=== PATIENT | female | born 1960 | race Caucasian/White ===

== ENCOUNTER 2017-06-04 14:05 | Inpatient (IN) | payer MEDICARE ==
[2017-06-04] MEDS ORDERED: SODIUM CHLORIDE 0.9% 1,000 ML IV ONE (15:51)
--- NOTE | 2017-06-04 16:16 | ED Physician Documentation ---
PD HPI ABD PAIN - Stated complaint Stated Complaint: ABD PX - Chief complaint Chief Complaint: Abd Pain - History obtained from History obtained from: Patient - History of Present Illness Timing - onset: How many hours ago (3) Timing - duration: Hours (3) Timing - details: Still present Quality: Cramping, Pain Location: All over / everywhere Associated symptoms: Nausea, Vomiting. No: Fever, Diarrhea, Dysuria Similar symptoms before: Has not had sx before - Additional information Additional information: The patient is a 56-year-old female with history of diabetes, inflammatory bowel syndrome, and bipolar disorder who presents with abdominal pain that started about 3 hours prior to arrival. She has had associated nausea with one episode of vomiting. She denies fever, diarrhea, or dysuria. She is postmenopausal. She states this pain is different from her inflammatory bowel syndrome pain. About 4 hours ago she ate 2 pieces of toast. Review of Systems Constitutional: denies: Fever Ears: denies: Tinnitus/ringing Nose: denies: Congestion Throat: denies: Sore throat Cardiac: denies: Chest pain / pressure Respiratory: denies: Dyspnea, Cough GI: reports: Abdominal Pain, Nausea, Vomiting. denies: Diarrhea : denies: Dysuria Skin: denies: Rash Musculoskeletal: denies: Back pain, Extremity pain, Extremity swelling Neurologic: denies: Focal weakness, Numbness, Headache PD PAST MEDICAL HISTORY - Past Medical History Cardiovascular: Hypertension Endocrine/Autoimmune: Type 2 diabetes GI: None : None HEENT: None, Chronic vision loss Psych: Bipolar disorder Musculoskeletal: None Derm: None - Past Surgical History Past Surgical History: No /PROCESS CONSULTANT: Other (Repair of enterovesicular fistula.) - Present Medications Home Medications: Ambulatory Orders Medication Instructions Recorded Confirmed Aspirin [Aspir 81] 81 mg PO DAILY 07/12/14 06/04/17 Glyburide 5 mg PO BID 07/12/14 06/04/17 Hydrochlorothiazide 25 mg PO DAILY 07/12/14 06/04/17 Losartan [Cozaar] 25 mg PO DAILY 07/12/14 06/04/17 Metformin HCl [Metformin HCl ER] 750 mg PO BID 07/12/14 06/04/17 QUEtiapine [SEROquel] 200 mg PO QPM 07/12/14 06/04/17 Simvastatin 40 mg PO DAILY 07/12/14 06/04/17 lamoTRIgine [LaMICtal] 100 mg PO BID 07/12/14 06/04/17 - Allergies Allergies/Adverse Reactions: Allergies Allergy/AdvReac Type Severity Reaction Status Date / Time Sulfa (Sulfonamide AdvReac Nausea Verified 06/04/17 16:20 Antibiotics) - Social History Does the pt smoke?: No Smoking Status: Never smoker Does the pt drink ETOH?: Yes PD ED PE NORMAL - Vitals Vital signs reviewed: Yes (Hypertensive initially.) - General General: Alert and oriented X 3, Well developed/nourished, Other (Overweight.) - HEENT HEENT: Atraumatic, Pharynx benign - Neck Neck: No adenopathy, No JVD - Cardiac Cardiac: RRR, No murmur - Respiratory Respiratory: No respiratory distress, Clear bilaterally - Abdomen Abdomen: Normal bowel sounds, Soft, Other (Mild generalized tenderness to palpation, without focal tenderness and without rebound or guarding.) - Back Back: No CVA TTP - Derm Derm: No rash - Extremities Extremities: No edema, No calf tenderness / cord - Neuro Neuro: Alert and oriented X 3, No motor deficit, No sensory deficit, Normal speech Results - Vitals Vitals: Vital Signs - 24 hr 06/04/17 06/04/17 06/04/17 15:41 18:19 19:25 Temperature 36.8 C Heart Rate 97 87 69 Respiratory 18 20 22 Rate Blood Pressure 155/95 H 137/87 H O2 Saturation 99 97 100 Oxygen O2 Source Room air - Labs Labs: Laboratory Tests 06/04/17 06/04/17 06/04/17 16:10 16:10 18:18 WBC 9.7 RBC 4.88 Hgb 14.6 Hct 42.6 MCV 87.2 MCH 29.9 MCHC 34.3 RDW 14.5 Plt Count 189 MPV 7.5 L Neut # 7.7 H Lymph # 1.3 L [place] # 0.6 Eos # 0.1 Baso # 0.1 Absolute Nucleated RBC 0.00 Nucleated RBCs 0.0 Sodium 136 Potassium 3.7 Chloride 97 L Carbon Dioxide 23 Anion Gap 16.0 H BUN 14 Creatinine 1.3 H Estimated GFR (MDRD) 42 L Glucose 180 H Calcium 10.8 H Total Bilirubin 0.9 AST 41 ALT 34 Alkaline Phosphatase 65 Total Protein 8.1 Albumin 4.7 Globulin 3.4 Albumin/Globulin Ratio 1.4 Lipase 39 Urine Color YELLOW Urine Clarity CLEAR Urine pH 7.0 Ur Specific [place] 1.015 Urine Protein NEGATIVE Urine Glucose (UA) NEGATIVE Urine Ketones 40 H Urine Occult Blood NEGATIVE Urine Nitrite NEGATIVE Urine Bilirubin NEGATIVE Urine Urobilinogen 0.2 (NORMAL) Ur Leukocyte Esterase TRACE H Urine RBC None Seen Urine WBC 0-3 Ur Squamous Epith Cells NONE SEEN Urine Bacteria None Seen Ur Microscopic Review INDICATED Urine Culture Comments INDICATED - Rads (name of study) CT abd/pelvis w/ Radiology: Prelim report reviewed, EMP read contemporaneously, See rad report ( Proximal and mid small bowel dilatation with distal decompressed small bowel. Suspicious for a partial mid to distal small bowel obstruction. Transition zone not visualized. Moderate colonic diverticulosis without diverticulitis. Diastases of the rectus sheath. No other acute process.) PD MEDICAL DECISION MAKING - ED course Complexity details: reviewed old records, reviewed results, re-evaluated patient , considered differential, d/w patient, d/w food consultant ED course: The patient's presentation is most consistent with small bowel obstruction. She does not appear to have acute surgical abdomen. Treatment in the emergency department included administration of normal saline 1 L IV, hydromorphone 1 mg IV 3 over several hours, Phenergan 12.5 mg IV, and Zofran 4 mg IV. I discussed her condition with Dr. Melgoza who is on-call for general surgery. He asked that the patient be admitted by medicine and he will consult for surgery. I discussed her condition with Dr. Stephen who evaluated her in the emergency department and admitted her for further evaluation and treatment. Departure - Departure Disposition: [facility] DC/Xfer Clinical Impression: Small bowel obstruction Type 2 diabetes mellitus Qualifiers: Proliferative retinopathy type: stable Diabetes mellitus longitudinal float operator insulin use : without longitudinal float operator use Condition: Stable Discharge Date/Time: 06/04/17 22:39
[2017-06-04 16:23] LABS: BASOPHILS # (AUTO) 0.1 10^3/uL (0.0-0.1); BASOPHILS % (AUTO) 0.5 %; EOSINOPHILS # (AUTO) 0.1 10^3/uL (0.0-0.7); EOSINOPHILS % (AUTO) 0.6 %; HCT - HEMATOCRIT 42.6 % (37.0-47.0); HGB - HEMOGLOBIN 14.6 g/dL (12.0-16.0); LYMPHOCYTES # (AUTO) 1.3 10^3/uL (1.5-3.5); LYMPHOCYTES % (AUTO) 13.2 %; MEAN CORPUSCULAR HEMOGLOBIN 29.9 pg (27.0-31.0); MEAN CORPUSCULAR HGB CONC 34.3 g/dL (32.0-36.0); MEAN CORPUSCULAR VOLUME 87.2 fL (81.0-99.0); MEAN PLATELET VOLUME 7.5 fL (7.9-10.8); MONOCYTES # (AUTO) 0.6 10^3/uL (0.0-1.0); MONOCYTES % (AUTO) 6.1 %; NEUTROPHILS # (AUTO) 7.7 10^3/uL (1.5-6.6); NEUTROPHILS % (AUTO) 79.6 %; RED BLOOD COUNT 4.88 10^6/uL (4.20-5.40); RED CELL DISTRIBUTION WIDTH 14.5 % (12.0-15.0); UNCORRECTED WHITE BLOOD COUNT 9.7 x10^3/uL; WHITE BLOOD COUNT 9.7 x10^3/uL (4.8-10.8)
[2017-06-04 16:37] LABS: ALBUMIN/GLOBULIN RATIO 1.4 (1.0-2.2); BILIRUBIN,TOTAL 0.9 mg/dL (0.2-1.0); CALCIUM 10.8 mg/dL (8.5-10.3); CREATININE 1.3 mg/dL (0.4-1.0); POTASSIUM 3.7 mmol/L (3.5-5.0); TOTAL PROTEIN 8.1 g/dL (6.7-8.2)
[2017-06-04] MEDS ORDERED: HYDROmorphone 1 MG/ML SYRINGE IVP STA ×3 (17:08→21:23)
[2017-06-04] MEDS ORDERED: PROMETHAZINE INJ 12.5 MG in SODIUM CHLORIDE 0.9% 50 ML IV STA (17:09)
[2017-06-04] MEDS ORDERED: PROMETHAZINE 25 MG/1 ML VIAL ONE ×2 (17:13→17:23)
[2017-06-04] MEDS ORDERED: HYDROmorphone 1 MG/ML SYRINGE ONE ×2 (17:13→19:48)
[2017-06-04] MEDS ORDERED: SODIUM CHLORIDE FLUSH 0.9% 10 ML SYRINGE IVP ONE ×2 (17:15→19:22)
[2017-06-04 18:29] LABS: BILIRUBIN,URINE NEGATIVE (NEGATIVE)
[2017-06-04 18:31] LABS: UA w/ MICROSCOPIC CHARGE YES
[2017-06-04 18:44] LABS: UR CULTURE IF IND INDICATED; WBC,URINE 0-3 /HPF (0-5)
[2017-06-04] MEDS ORDERED: ONDANSETRON 4 MG/2 ML VIAL IVP STA ×2 (19:30→21:23)
[2017-06-04] MEDS ORDERED: ONDANSETRON 4 MG/2 ML VIAL ONE (19:48)
[2017-06-04] MEDS ORDERED: IOPAMIDOL-300 100 ML VIAL IVP ONE (20:14)
--- NOTE | 2017-06-04 20:59 | CT Report ---
EXAM: CT ABDOMEN AND PELVIS EXAM DATE: 06/04/2017 08:06 PM. CLINICAL HISTORY: Abd. pain; h/o IBS. COMPARISONS: None. TECHNIQUE: Routine helical CT imaging was performed through the abdomen and pelvis. IV contrast: 70 c c Isovue-300 IV. Enteric contrast: No. Reconstructions: Coronal and sagittal. In accordance with CT protocol optimization, one or more of the following dose reduction techniques w ere utilized for this exam: automated exposure control, adjustment of mA and/or KV based on patient s ize, or use of iterative reconstructive technique. FINDINGS: Lung Bases: Unremarkable. Liver: Normal. No masses. Gallbladder/Bile Ducts: Unremarkable. Spleen: Normal. Pancreas: Normal. Adrenal Glands: Normal. Kidneys: Both kidneys have a lobulated contour. Kidneys enhance symmetrically without hydronephrosis. Peritoneal Cavity/Bowel: There are multiple fluid-filled and dilated small bowel loops. In the left p dary, small bowel loops measure up to 3.2 cm in diameter. The distal small bowel is decompressed. A discrete transition zone is not visualized. The appendix appears normal. There is moderate colonic di verticulosis. There are findings of previous colon resection and anastomosis in the pelvis. There is diastases of the rectus sheath at the Enrique of the umbilicus. Pelvic Organs: Urinary bladder is unremarkable. Vasculature: No aneurysms or other significant abnormality. Bones: No significant abnormality. Other: IMPRESSION: 1. Proximal and mid small bowel dilation with distal decompressed small bowel. Suspicious for a parti al mid to distal small bowel obstruction. Transition zone not visualized. 2. Moderate colonic diverticulosis without diverticulitis. 3. Diastases of the rectus sheath. 4. No other acute process. [facility] Referring Provider Line: [phone] SITE ID: [id number]
[2017-06-04] MEDS ORDERED: ACETAMINOPHEN 325 MG TABLET PO PRN (21:40)
[2017-06-04] MEDS ORDERED: TEMAZEPAM 15 MG CAPSULE PO PRN (21:40)
[2017-06-04] MEDS ORDERED: PROMETHAZINE 25 MG/1 ML VIAL IM PRN (21:40)
[2017-06-04] MEDS: SODIUM CHLORIDE 0.9% 1,000 ML IV SCH (22:52)
[2017-06-04] MEDS: oxyCODONE 5 MG TABLET PO PRN (22:52)
[2017-06-04] MEDS: SODIUM CHLORIDE FLUSH 0.9% 10 ML SYRINGE IVP SCH (22:53)
[2017-06-04] MEDS ORDERED: CALCIUM CARBONATE CHEW 500 MG TABLET PO SCH (22:59)
[2017-06-04] MEDS: QUEtiapine 100 MG TABLET PO SCH (23:19)
--- NOTE | 2017-06-04 23:27 | HISTORY & PHYSICAL EXAMINATION ---
Chief Complaint - Chief Complaint Chief Complaint: Abdominal Pain History of Present Illness - Admitted From Admitted From:: Emergency Department - History Obtained From Records Reviewed: Yes History obtained from: Patient Exam Limitations: None - History of Present Illness HPI Comment/Other: Patient is a very pleasant 56 year old female with a past medical history significant for schizoaffective disorder, alcohol abuse last drink was over 2 years ago, irritable bowel syndrome, hypertension , diabetes and obesity who presented to the Emergency Department with a chief complaint of abdominal pain. The patient states she was in her normal state of health until this morning when she came into her home after doing some yard work outside. She states that around 11 am she felt as though her abdomen became very distended all of a sudden. She states she also began having some pain in her mid abdomen which progressively worsened over the next several hours. She states by the time she arrived in the ER the pain was up to a 9/10. She states that the pain moved from the mid-abdomen up to the epigastric area of the abdomen and then into her back. She states she now also feels some acid reflux as well. She states that she began vomiting around 2 pm and states she has not been able to keep anything down and continues to feel nauseated. She states she is not passing any gas and has not had a bowel movement since yesterday. She denies any diarrhea. She denies any fevers or chills. She states the pain does improve with the pain medication she is getting in the ER but then the pain comes back once the medication wears off. She denies any chest pain, shortness of breath, orthopnea, PND, increased lower extremity swelling, headaches, blurred vision, sore throat, runny nose, muscle pain joint pain, urinary symptoms or focal neurological symptoms. She does state that she has had a surgery more than 20 years ago to repair and entero- vesicular fistula. She feels slightly anxious but states that her schizoaffective disorder is controlled as long as she takes her medications. She also states that she has lost 50 lbs over the last year. She states this was an intentional weight loss and she states she has noticed an improvement in her blood pressure and blood sugars with the weight loss. On presentation to the ER the patient was in severe abdominal pain requiring IV dilaudid. She was afebrile and her vital signs were stable. The patients lab worked revealed a mildly elevated creatinine and calcium but were otherwise within normal limits. She underwent a CT of her abdomen which revealed proximal and mid small bowel dilation with distal decompressed small bowel. Suspicious for a partial mid to distal small bowel obstruction. The emergency room physician spoke with the Surgeon fleet operations manager Dr. Melgoza who asked that the patient be admitted by the hospitalist team for medical management and he would consult on the patient. Review of Systems - Other Findings Other Findings: A comprehensive review of systems was performed and the pertinent positives and negatives are stated above in the HPI the remainder of the review of systems is negative. History - Past Medical History Cardiovascular: reports: Hypertension Endocrine/Autoimmune: reports: Type 2 diabetes GI: reports: Other (IBS) MACARONI PRESS OPERATOR: reports: None : reports: None HEENT: reports: Chronic vision loss Psych: reports: Other (Schizoaffective disorder) Musculoskeletal: reports: None Derm: reports: None MRSA Hx?: No - Past Surgical History /MACARONI PRESS OPERATOR: reports: Other (Repair of enterovesicular fistula.) - Family & Social History Family History: Mother: , Diabetes, Type 2, Hypertension, Father: , Alcoholism, Hypertension, Sister: Diabetes, Type 2, Hypertension, Brother: Diabetes, Type 2, Hypertension Living arrangement: At home Living Situation: Alone Social History Notes: The patient lives alone in a home in [place]. She was born in [place], [place] and grew up in [place] to [place] when she was 18 and has lived on [facility] for 12 years. 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 She does not have any children. She is a former smoker quit 20 years ago but previously smoked 1PPD for 20 years. She was a heavy drinker and quit 2 years ago. She states she had to go to a detox center. She denies any illicit drug use. - POLST Patient has POLST: No POLST Status: Full Code Meds/Allgy - Home Medications Home Medications: Ambulatory Orders Medication Instructions Recorded Confirmed Aspirin [Aspir 81] 81 mg PO DAILY 07/12/14 06/04/17 Glyburide 5 mg PO BID 07/12/14 06/04/17 Hydrochlorothiazide 25 mg PO DAILY 07/12/14 06/04/17 Losartan [Cozaar] 25 mg PO DAILY 07/12/14 06/04/17 Metformin HCl [Metformin HCl ER] 750 mg PO BID 07/12/14 06/04/17 QUEtiapine [SEROquel] 200 mg PO QPM 07/12/14 06/04/17 Simvastatin 40 mg PO DAILY 07/12/14 06/04/17 lamoTRIgine [LaMICtal] 100 mg PO BID 07/12/14 06/04/17 - Allergies Allergies/Adverse Reactions: Allergies Allergy/AdvReac Type Severity Reaction Status Date / Time Sulfa (Sulfonamide AdvReac Nausea Verified 06/04/17 16:20 Antibiotics) Exam - Vital Signs Reviewed Vital Signs: Yes Vital Signs: Vital Signs x48h Temp Pulse Pulse Resp BP BP Pulse Ox 06/04/17 22:44 100 18 152/99 H 98 06/04/17 22:36 37.2 C 99 20 163/85 H 98 - Physical Exam General Appearance: positive: Alert, Mild distress (Her pain was coming back on and when it does she is in distress from the pain), Anxious (Mildly) Eyes Bilateral: positive: Normal inspection, PERRL, EOMI, No lid inflammation, Conjunctivae nml, No scleral icterus ENT: positive: ENT inspection nml, Pharynx nml, Dry mucous membranes. negative : Purulent nasal drainage, Pharyngeal erythema, Oral lesions Neck: positive: Nml inspection, Thyroid nml, No JVD, Trachea midline. negative : Thyromegaly, Lymphadenopathy (R), Lymphadenopathy (L), Carotid bruit, Tracheal deviation Respiratory: positive: Chest non-tender, No respiratory distress, Breath sounds nml. negative: Wheezes, Rales, Rhonchi Cardiovascular: positive: Regular rate & rhythm, No murmur, No gallop Peripheral Pulses: positive: 2+ Abdomen: positive: Tenderness (Mostly in the mid abdomen and epigastric area, abdomen is soft), Abnml bowel sounds (Decreased), Other (Abdomen mildly distended). negative: Guarding, Rebound, Hepatomegaly Back: positive: Nml inspection. negative: CVA tenderness (R), CVA tenderness (L ) Skin: positive: Color nml, No rash, Dry. negative: Cyanosis, Pallor Extremities: positive: Non-tender, Full ROM, Nml appearance, No pedal edema Neurologic/Psychiatric: positive: Oriented x3, CN's nml (2-12), Motor nml, Sensation nml, Mood/affect nml Conclusion/Plan - Problem List (1) Small bowel obstruction Conclusion/Plan: She presented with abdominal pain, distension, not passing gas x 1 day. She has history of repair of a entero-vesicular fistula Abdomen tender and distended CT abd/pelvis shows proximal and mid small bowel dilation suspicious for a partial small bowel obstruction Likely etiology is adhesions Plan: IVFs NPO IV dialudid for pain control IV anti-emtics for nausea control If persistent vomiting then will need NG tube to intermittent suction Surgery consult Daily abd xrays (2) FELIX (acute kidney injury) Conclusion/Plan: Fermenter Operator 1.3 on presentation only slightly elevated from baseline Likely mild FELIX secondary to vomiting and poor PO intake Plan: given IVFs Monitor refractory grinder operator Avoid nephrotoxic agents (3) Type 2 diabetes mellitus Conclusion/Plan: Blood glucose elevated at 180 on presentation Patient is on glyburide at home Plan: Hold glyburide while hospitalized Check hbA1C SS insulin while hospitalized NPO SS insulin and when able to eat advance to DM diet Qualifiers: Proliferative retinopathy type: stable Diabetes mellitus intermodal truck driver insulin use: without intermodal truck driver use (4) Hypertension Conclusion/Plan: Patient states BP is much better since she lost weight ON presentation BP elevated likely secondary to pain Continue patients home BP medication Control pain Monitor BP Qualifiers: Hypertension type: essential hypertension Qualified Code(s): I10 - Essential (primary) hypertension (5) Schizoaffective disorder Conclusion/Plan: Patient is on lamictal and seroquel She was previously on lithium but had lithium toxicity so stopped Currently stable Continue home medication Qualifiers: Schizoaffective disorder type: bipolar Qualified Code(s): F25.0 - Schizoaffective disorder, bipolar type (6) Hypercalcemia Conclusion/Plan: LIkely secondary to dehydration Give IVFs Check PTH and ionized Ca Monitor Ca (7) Prophylactic use of low molecular weight heparin for venous thromboembolism Conclusion/Plan: Place on lovenox while hospitalized - Lab Results Lab results reviewed: Yes Fish Bones: 06/04/17 16:10 06/04/17 16:10 Other Lab Results: Laboratory Results WBC 9.7 x10^3/uL (4.8-10.8) 06/04/17 16:10 RBC 4.88 10^6/uL (4.20-5.40) 06/04/17 16:10 Hgb 14.6 g/dL (12.0-16.0) 06/04/17 16:10 Hct 42.6 % (37.0-47.0) 06/04/17 16:10 MCV 87.2 fL (81.0-99.0) 06/04/17 16:10 MCH 29.9 pg (27.0-31.0) 06/04/17 16:10 MCHC 34.3 g/dL (32.0-36.0) 06/04/17 16:10 RDW 14.5 % (12.0-15.0) 06/04/17 16:10 Plt Count 189 10^3/uL (130-450) 06/04/17 16:10 MPV 7.5 fL (7.9-10.8) L 06/04/17 16:10 Neut # 7.7 10^3/uL (1.5-6.6) H 06/04/17 16:10 Lymph # 1.3 10^3/uL (1.5-3.5) L 06/04/17 16:10 [place] # 0.6 10^3/uL (0.0-1.0) 06/04/17 16:10 Eos # 0.1 10^3/uL (0.0-0.7) 06/04/17 16:10 Baso # 0.1 10^3/uL (0.0-0.1) 06/04/17 16:10 Absolute Nucleated RBC 0.00 x10^3/uL 06/04/17 16:10 Nucleated RBCs 0.0 /100WBC 06/04/17 16:10 Sodium 136 mmol/L (135-145) 06/04/17 16:10 Potassium 3.7 mmol/L (3.5-5.0) 06/04/17 16:10 Chloride 97 mmol/L (101-111) L 06/04/17 16:10 Carbon Dioxide 23 mmol/L (21-32) 06/04/17 16:10 Anion Gap 16.0 (6-13) H 06/04/17 16:10 BUN 14 mg/dL (6-20) 06/04/17 16:10 Creatinine 1.3 mg/dL (0.4-1.0) H 06/04/17 16:10 Estimated GFR (MDRD) 42 (>89) L 06/04/17 16:10 Glucose 180 mg/dL (70-100) H 06/04/17 16:10 POC Whole Bld Glucose 177 mg/dL (70 - 100) H 06/04/17 23:29 Calcium 10.8 mg/dL (8.5-10.3) H 06/04/17 16:10 Total Bilirubin 0.9 mg/dL (0.2-1.0) 06/04/17 16:10 AST 41 IU/L (10-42) 06/04/17 16:10 ALT 34 IU/L (10-60) 06/04/17 16:10 Alkaline Phosphatase 65 IU/L (42-121) 06/04/17 16:10 Total Protein 8.1 g/dL (6.7-8.2) 06/04/17 16:10 Albumin 4.7 g/dL (3.2-5.5) 06/04/17 16:10 Globulin 3.4 g/dL (2.1-4.2) 06/04/17 16:10 Albumin/Globulin Ratio 1.4 (1.0-2.2) 06/04/17 16:10 Lipase 39 U/L (22-51) 06/04/17 16:10 Urine Color YELLOW 06/04/17 18:18 Urine Clarity CLEAR (CLEAR) 06/04/17 18:18 Urine pH 7.0 PH (5.0-7.5) 06/04/17 18:18 Ur Specific [place] 1.015 (1.002-1.030) 06/04/17 18:18 Urine Protein NEGATIVE mg/dL (NEGATIVE) 06/04/17 18:18 Urine Glucose (UA) NEGATIVE mg/dL (NEGATIVE) 06/04/17 18:18 Urine Ketones 40 mg/dL (NEGATIVE) H 06/04/17 18:18 Urine Occult Blood NEGATIVE (NEGATIVE) 06/04/17 18:18 Urine Nitrite NEGATIVE (NEGATIVE) 06/04/17 18:18 Urine Bilirubin NEGATIVE (NEGATIVE) 06/04/17 18:18 Urine Urobilinogen 0.2 (NORMAL) E.U./dL (NORMAL) 06/04/17 18:18 Ur Leukocyte Esterase TRACE (NEGATIVE) H 06/04/17 18:18 Urine RBC None Seen /HPF (0-5) 06/04/17 18:18 Urine WBC 0-3 /HPF (0-5) 06/04/17 18:18 Ur Squamous Epith Cells NONE SEEN (<= Few) 06/04/17 18:18 Urine Bacteria None Seen /HPF (None Seen) 06/04/17 18:18 Ur Microscopic Review INDICATED 06/04/17 18:18 Urine Culture Comments INDICATED 06/04/17 18:18 - Diagnostic Imaging Results Diagnostic Imaging Results: positive: Final report reviewed Diagnostic Imaging Results Comments: CT abdomen/Pelvis: Proximal and mid small bowel dilation with distal decompressed small bowel. Suspicious for a partial mid to distal small bowel obstruction. Tansition zone not visualized. Moderate colonic diverticulosis without diverticulitis. Dastases of the rectus sheat Issues/Core Measures - Anticipated LOS Anticipated Stay Length: 2 or more midnights - DVT/VTE - Prophylaxis VTE/DVT Prophylaxis med ordered at admit?: Yes
[2017-06-05] MEDS: INSULIN REGULAR HUMAN 100 UNIT/1 ML 10 ML MDV SUBQ SCH ×5 (00:41→23:49)
[2017-06-05] MEDS: oxyCODONE 5 MG TABLET PO PRN ×2 (04:46→18:05)
[2017-06-05] MEDS: SODIUM CHLORIDE 0.9% 1,000 ML IV SCH ×3 (04:53→20:03)
[2017-06-05] MEDS: SODIUM CHLORIDE FLUSH 0.9% 10 ML SYRINGE IVP SCH ×3 (05:33→22:39)
[2017-06-05] MEDS: HYDROmorphone 1 MG/ML SYRINGE IVP PRN ×4 (05:42→17:49)
[2017-06-05 06:41] LABS: BASOPHILS % (AUTO) 0.3 %; EOSINOPHILS % (AUTO) 0.5 %; HCT - HEMATOCRIT 44.4 % (37.0-47.0); HGB - HEMOGLOBIN 14.7 g/dL (12.0-16.0); LYMPHOCYTES # (AUTO) 1.5 10^3/uL (1.5-3.5); LYMPHOCYTES % (AUTO) 16.9 %; MEAN CORPUSCULAR HEMOGLOBIN 29.5 pg (27.0-31.0); MEAN CORPUSCULAR VOLUME 89.3 fL (81.0-99.0); MEAN PLATELET VOLUME 7.8 fL (7.9-10.8); MONOCYTES # (AUTO) 0.8 10^3/uL (0.0-1.0); MONOCYTES % (AUTO) 8.6 %; NEUTROPHILS # (AUTO) 6.5 10^3/uL (1.5-6.6); NEUTROPHILS % (AUTO) 73.7 %; RED BLOOD COUNT 4.97 10^6/uL (4.20-5.40); RED CELL DISTRIBUTION WIDTH 14.6 % (12.0-15.0); UNCORRECTED WHITE BLOOD COUNT 8.8 x10^3/uL; WHITE BLOOD COUNT 8.8 x10^3/uL (4.8-10.8)
[2017-06-05 06:48] LABS: PT - PROTHROMBIN TIME 11.3 secs (9.9-12.6)
[2017-06-05 06:54] LABS: ALBUMIN/GLOBULIN RATIO 1.3 (1.0-2.2); BILIRUBIN,TOTAL 0.9 mg/dL (0.2-1.0); CALCIUM 9.9 mg/dL (8.5-10.3); CREATININE 1.3 mg/dL (0.4-1.0); MAGNESIUM 1.9 mg/dL (1.7-2.8); POTASSIUM 4.2 mmol/L (3.5-5.0); TOTAL PROTEIN 7.5 g/dL (6.7-8.2)
[2017-06-05 07:20] LABS: HEMOGLOBIN A1C 0.63 g/dL
[2017-06-05 07:30] LABS: THYROID STIMULATING HORMONE 4.07 uIU/mL (0.34-5.60)
[2017-06-05] MEDS: POLYETHYLENE GLYCOL 3350 17 GM PACKET PO SCH (08:56)
[2017-06-05] MEDS ORDERED: LITHIUM 150 MG CAPSULE PO SCH (09:00)
[2017-06-05] MEDS ORDERED: QUEtiapine 100 MG TABLET PO SCH (09:00)
--- NOTE | 2017-06-05 09:22 | XRAY Report ---
ACUTE ABDOMEN SERIES: 06/05/2017 CLINICAL INDICATION: Bowel obstruction. FINDINGS: Supine, upright views of the abdomen and a frontal view of the chest were obtained. The cardiac silhouette is within normal limits. The lungs are clear. No effusion or pneumothorax is s een. The visualized bowel gas pattern is normal. No free intraperitoneal gas is appreciated. Residual cont rast is seen in the urinary bladder from a CT of the previous day. IMPRESSION: NORMAL BOWEL GAS PATTERN. NO FREE AIR. JOB #: [id number] EXT JOB #:[id number]
[2017-06-05] MEDS: CALCIUM CARBONATE CHEW 500 MG TABLET PO SCH ×2 (11:04→22:38)
[2017-06-05] MEDS: FAMOTIDINE 20 MG/50 ML 50 ML IV SCH (11:04)
[2017-06-05] MEDS: ATORVASTATIN 10 MG TABLET PO SCH (11:04)
[2017-06-05] MEDS: ASPIRIN EC 81 MG TABLET PO SCH (11:04)
[2017-06-05] MEDS: LOSARTAN 50 MG TABLET PO SCH (11:04)
[2017-06-05] MEDS: lamoTRIgine 100 MG TABLET PO SCH ×2 (11:05→18:07)
[2017-06-05] MEDS: hydroCHLOROthiazide 25 MG TABLET PO SCH (11:05)
[2017-06-05] MEDS: ENOXAPARIN 40 MG/0.4 ML SYRINGE SUBQ SCH (11:05)
[2017-06-05] MEDS: SODIUM CHLORIDE FLUSH 0.9% 10 ML SYRINGE IVP PRN ×2 (13:35→17:50)
--- NOTE | 2017-06-05 14:57 | PROVIDER PROGRESS NOTE ---
Subjective - Subjective Pt reports feeling: Improved, No change Subjective: pt state she had three time vomiting before she came in but did not nausea and vomiting after treated at hospital. Denies abdominal pain, chest pain, headache , shortness of air, fever, chill. No bowel movement since before yesterday. Objective - Vital Signs/Intake & Output Vital Signs: Vital Signs x48h Temp Pulse Resp BP Pulse Ox 06/05/17 08:04 37 C 82 20 124/61 100 Intake & Output: Intake & Output 06/02/17 06/03/17 06/04/17 06/05/17 23:59 23:59 23:59 23:59 Intake Total 1855 Output Total 1 Balance 1854 - Objective General Appearance: positive: No acute distress, Alert. negative: Anxious Eyes Bilateral: positive: Normal inspection, PERRL. negative: No lid inflammation, Conjunctivae nml ENT: positive: ENT inspection nml, Pharynx nml, No signs of dehydration. negative: Purulent nasal drainage, Pharyngeal erythema, Oral lesions Neck: positive: Nml inspection, Thyroid nml, Trachea midline. negative: Lymphadenopathy (R), Lymphadenopathy (L), Stiff neck, Swelling/bruising Respiratory: positive: Chest non-tender, No respiratory distress, Breath sounds nml. negative: Wheezes, Rales, Rhonchi Cardiovascular: positive: Regular rate & rhythm, No murmur, No gallop. negative : Tachycardia, Bradycardia, Systolic murmur, Diastolic murmur Peripheral Pulses: 2+ Radial (R), 2+ Radial (L), 2+ Dorsalis pedis (R), 2+ Dorsalis pedis (L) Abdomen: positive: Non-tender, No distention. negative: Tenderness, Guarding, Rebound, Other (reduced bowel sounds in all quadrants) Back: positive: Nml inspection. negative: CVA tenderness (R), CVA tenderness (L ) Skin: positive: Color nml, No rash, Warm, Dry. negative: Diaphoresis, Pallor Extremities: positive: Non-tender, Full ROM, Nml appearance, No pedal edema. negative: Pedal edema, Calf tenderness, Joint swelling Neurologic/Psychiatric: positive: Oriented x3, CN's nml (2-12), Motor nml, Sensation nml, Mood/affect nml. negative: Disoriented to person, Disoriented to place, Disoriented to time, Weakness, Sensory loss, Facial droop, Slurred/ abnml speech, Depressed mood/affect - Lab Results Fish Bones: 06/05/17 06:25 06/05/17 06:25 Other Labs: Lab Results x24hrs 06/05/17 06/05/17 06/05/17 Range/Units 11:22 06:25 06:25 WBC (4.8-10.8) x10^3/uL RBC (4.20-5.40) 10^6/uL Hgb (12.0-16.0) g/dL Hct (37.0-47.0) % MCV (81.0-99.0) fL MCH (27.0-31.0) pg MCHC (32.0-36.0) g/dL RDW (12.0-15.0) % Plt Count (130-450) 10^3/uL MPV (7.9-10.8) fL Neut # (1.5-6.6) 10^3/uL Lymph # (1.5-3.5) 10^3/uL [place] # (0.0-1.0) 10^3/uL Eos # (0.0-0.7) 10^3/uL Baso # (0.0-0.1) 10^3/uL Absolute Nucleated RBC x10^3/uL Nucleated RBCs /100WBC PT (9.9-12.6) secs INR (0.8-1.2) Sodium (135-145) mmol/L Potassium (3.5-5.0) mmol/L Chloride (101-111) mmol/L Carbon Dioxide (21-32) mmol/L Anion Gap (6-13) BUN (6-20) mg/dL Creatinine (0.4-1.0) mg/dL Estimated GFR (MDRD) (>89) Glucose (70-100) mg/dL POC Whole Bld Glucose 100 (70 - 100) mg/dL Glycated Hemoglobin 5.8 (4.6-6.2) % Estim Average Glucose 120 H (70-100) Lactic Acid (0.5-2.2) mmol/L Calcium (8.5-10.3) mg/dL Magnesium (1.7-2.8) mg/dL Total Bilirubin (0.2-1.0) mg/dL AST (10-42) IU/L ALT (10-60) IU/L Alkaline Phosphatase (42-121) IU/L Total Protein (6.7-8.2) g/dL Albumin (3.2-5.5) g/dL Globulin (2.1-4.2) g/dL Albumin/Globulin Ratio (1.0-2.2) TSH 4.07 (0.34-5.60) uIU/mL PTH Intact 27 (12-88) pg/mL 06/05/17 06/05/17 06/05/17 Range/Units 06:25 06:25 06:25 WBC (4.8-10.8) x10^3/uL RBC (4.20-5.40) 10^6/uL Hgb (12.0-16.0) g/dL Hct (37.0-47.0) % MCV (81.0-99.0) fL MCH (27.0-31.0) pg MCHC (32.0-36.0) g/dL RDW (12.0-15.0) % Plt Count (130-450) 10^3/uL MPV (7.9-10.8) fL Neut # (1.5-6.6) 10^3/uL Lymph # (1.5-3.5) 10^3/uL [place] # (0.0-1.0) 10^3/uL Eos # (0.0-0.7) 10^3/uL Baso # (0.0-0.1) 10^3/uL Absolute Nucleated RBC x10^3/uL Nucleated RBCs /100WBC PT 11.3 (9.9-12.6) secs INR 1.0 (0.8-1.2) Sodium 138 (135-145) mmol/L Potassium 4.2 (3.5-5.0) mmol/L Chloride 101 (101-111) mmol/L Carbon Dioxide 23 (21-32) mmol/L Anion Gap 14.0 H (6-13) BUN 16 (6-20) mg/dL Creatinine 1.3 H (0.4-1.0) mg/dL Estimated GFR (MDRD) 42 L (>89) Glucose 152 H (70-100) mg/dL POC Whole Bld Glucose (70 - 100) mg/dL Glycated Hemoglobin (4.6-6.2) % Estim Average Glucose (70-100) Lactic Acid 1.1 (0.5-2.2) mmol/L Calcium 9.9 (8.5-10.3) mg/dL Magnesium 1.9 (1.7-2.8) mg/dL Total Bilirubin 0.9 (0.2-1.0) mg/dL AST 37 (10-42) IU/L ALT 32 (10-60) IU/L Alkaline Phosphatase 59 (42-121) IU/L Total Protein 7.5 (6.7-8.2) g/dL Albumin 4.3 (3.2-5.5) g/dL Globulin 3.2 (2.1-4.2) g/dL Albumin/Globulin Ratio 1.3 (1.0-2.2) TSH (0.34-5.60) uIU/mL PTH Intact (12-88) pg/mL 06/05/17 06/05/17 06/04/17 Range/Units 06:25 05:25 23:29 WBC 8.8 (4.8-10.8) x10^3/uL RBC 4.97 (4.20-5.40) 10^6/uL Hgb 14.7 (12.0-16.0) g/dL Hct 44.4 (37.0-47.0) % MCV 89.3 (81.0-99.0) fL MCH 29.5 (27.0-31.0) pg MCHC 33.0 (32.0-36.0) g/dL RDW 14.6 (12.0-15.0) % Plt Count 201 (130-450) 10^3/uL MPV 7.8 L (7.9-10.8) fL Neut # 6.5 (1.5-6.6) 10^3/uL Lymph # 1.5 (1.5-3.5) 10^3/uL [place] # 0.8 (0.0-1.0) 10^3/uL Eos # 0.0 (0.0-0.7) 10^3/uL Baso # 0.0 (0.0-0.1) 10^3/uL Absolute Nucleated RBC 0.00 x10^3/uL Nucleated RBCs 0.0 /100WBC PT (9.9-12.6) secs INR (0.8-1.2) Sodium (135-145) mmol/L Potassium (3.5-5.0) mmol/L Chloride (101-111) mmol/L Carbon Dioxide (21-32) mmol/L Anion Gap (6-13) BUN (6-20) mg/dL Creatinine (0.4-1.0) mg/dL Estimated GFR (MDRD) (>89) Glucose (70-100) mg/dL POC Whole Bld Glucose 109 H 177 H (70 - 100) mg/dL Glycated Hemoglobin (4.6-6.2) % Estim Average Glucose (70-100) Lactic Acid (0.5-2.2) mmol/L Calcium (8.5-10.3) mg/dL Magnesium (1.7-2.8) mg/dL Total Bilirubin (0.2-1.0) mg/dL AST (10-42) IU/L ALT (10-60) IU/L Alkaline Phosphatase (42-121) IU/L Total Protein (6.7-8.2) g/dL Albumin (3.2-5.5) g/dL Globulin (2.1-4.2) g/dL Albumin/Globulin Ratio (1.0-2.2) TSH (0.34-5.60) uIU/mL PTH Intact (12-88) pg/mL Assessment/Plan - Problem List (1) Small bowel obstruction Impression: surgeon already saw pt, will follow up. NPO except meds IVF pt does not vomit, no NG tube at this moment, will follow up surgeon's recommendation (2) Type 2 diabetes mellitus Impression: pt is NPO now, ACHS, hypoglycemia protocol, slide scale as needed Qualifiers: Proliferative retinopathy type: stable Diabetes mellitus termite treater helper insulin use: without skilled nursing use (3) FELIX (acute kidney injury) Impression: acute on chronic renal insufficiency, IVF, hydration check CMP void nephrotoxic agents (4) Hypertension Impression: it appears stable now, reconciliation of home meds, closely monitor Qualifiers: Hypertension type: essential hypertension Qualified Code(s): I10 - Essential (primary) hypertension (5) Hypercalcemia Impression: resolved after hydration, will monitor closely (6) Schizoaffective disorder Impression: mood and affect stable now, reconciliation of home meds, monitor Qualifiers: Schizoaffective disorder type: bipolar Qualified Code(s): F25.0 - Schizoaffective disorder, bipolar type
[2017-06-05] MEDS: ONDANSETRON 4 MG/2 ML VIAL IVP PRN (18:03)
[2017-06-05] MEDS: QUEtiapine 100 MG TABLET PO SCH (18:07)
[2017-06-06] MEDS: SODIUM CHLORIDE 0.9% 1,000 ML IV SCH ×4 (02:19→19:42)
[2017-06-06] MEDS: oxyCODONE 5 MG TABLET PO PRN ×2 (03:03→09:30)
[2017-06-06] MEDS: HYDROmorphone 1 MG/ML SYRINGE IVP PRN ×5 (03:26→20:52)
[2017-06-06] MEDS: SODIUM CHLORIDE FLUSH 0.9% 10 ML SYRINGE IVP SCH ×3 (04:54→22:28)
[2017-06-06] MEDS: INSULIN REGULAR HUMAN 100 UNIT/1 ML 10 ML MDV SUBQ SCH ×3 (06:08→18:52)
[2017-06-06 06:24] LABS: BASOPHILS % (AUTO) 0.2 %; EOSINOPHILS # (AUTO) 0.2 10^3/uL (0.0-0.7); EOSINOPHILS % (AUTO) 1.8 %; HCT - HEMATOCRIT 40.6 % (37.0-47.0); HGB - HEMOGLOBIN 13.4 g/dL (12.0-16.0); LYMPHOCYTES # (AUTO) 1.1 10^3/uL (1.5-3.5); LYMPHOCYTES % (AUTO) 13.2 %; MEAN CORPUSCULAR HEMOGLOBIN 30.1 pg (27.0-31.0); MEAN CORPUSCULAR VOLUME 91.2 fL (81.0-99.0); MEAN PLATELET VOLUME 7.8 fL (7.9-10.8); MONOCYTES # (AUTO) 0.9 10^3/uL (0.0-1.0); NEUTROPHILS # (AUTO) 6.3 10^3/uL (1.5-6.6); NEUTROPHILS % (AUTO) 73.8 %; NUCLEATED RED BLOOD CELLS AUTO 0.1 /100WBC; RED BLOOD COUNT 4.45 10^6/uL (4.20-5.40); RED CELL DISTRIBUTION WIDTH 14.7 % (12.0-15.0); UNCORRECTED WHITE BLOOD COUNT 8.5 x10^3/uL; WHITE BLOOD COUNT 8.5 x10^3/uL (4.8-10.8)
[2017-06-06 06:36] LABS: ALBUMIN/GLOBULIN RATIO 1.3 (1.0-2.2); BILIRUBIN,TOTAL 0.8 mg/dL (0.2-1.0); CALCIUM 8.7 mg/dL (8.5-10.3); CREATININE 1.1 mg/dL (0.4-1.0); MAGNESIUM 1.5 mg/dL (1.7-2.8); POTASSIUM 4.2 mmol/L (3.5-5.0); TOTAL PROTEIN 5.8 g/dL (6.7-8.2)
[2017-06-06] MEDS ORDERED: MAGNESIUM SULFATE 1 GM in SODIUM CHLORIDE 0.9% 50 ML IV ONE (08:39)
[2017-06-06] MEDS: POLYETHYLENE GLYCOL 3350 17 GM PACKET PO SCH (08:44)
--- NOTE | 2017-06-06 08:49 | PROVIDER PROGRESS NOTE ---
Subjective - General Admit Date: 06/04/17 - Review of Systems Gastrointestinal: positive: Abdominal pain (improved but still present) Objective - Patient Data Vital Signs: Vital Signs x48h Temp Pulse Resp BP Pulse Ox 06/06/17 07:59 37.3 C 86 16 125/78 97 Weight: Weight 06/04/17 06/05/17 06/06/17 23:59 23:59 23:59 Weight (kg) 95 kg Intake & Output: Intake and Output Totals x24h 06/04/17 06/05/17 06/06/17 23:59 23:59 23:59 Intake Total 2905 931 Output Total 1 Balance 2904 931 - Lab Results Lab Results: 06/06/17 05:18 06/06/17 05:18 Other Lab Results: Lab Results x24hrs 06/06/17 06/06/17 06/06/17 Range/Units 05:46 05:18 05:18 WBC 8.5 (4.8-10.8) x10^3/uL RBC 4.45 (4.20-5.40) 10^6/uL Hgb 13.4 (12.0-16.0) g/dL Hct 40.6 (37.0-47.0) % MCV 91.2 (81.0-99.0) fL MCH 30.1 (27.0-31.0) pg MCHC 33.0 (32.0-36.0) g/dL RDW 14.7 (12.0-15.0) % Plt Count 139 (130-450) 10^3/uL MPV 7.8 L (7.9-10.8) fL Neut # 6.3 (1.5-6.6) 10^3/uL Lymph # 1.1 L (1.5-3.5) 10^3/uL [place] # 0.9 (0.0-1.0) 10^3/uL Eos # 0.2 (0.0-0.7) 10^3/uL Baso # 0.0 (0.0-0.1) 10^3/uL Absolute Nucleated RBC 0.01 x10^3/uL Nucleated RBCs 0.1 /100WBC Sodium 141 (135-145) mmol/L Potassium 4.2 (3.5-5.0) mmol/L Chloride 108 (101-111) mmol/L Carbon Dioxide 25 (21-32) mmol/L Anion Gap 8.0 (6-13) BUN 13 (6-20) mg/dL Creatinine 1.1 H (0.4-1.0) mg/dL Estimated GFR (MDRD) 51 L (>89) Glucose 124 H (70-100) mg/dL POC Whole Bld Glucose 109 H (70 - 100) mg/dL Calcium 8.7 (8.5-10.3) mg/dL Magnesium 1.5 L (1.7-2.8) mg/dL Total Bilirubin 0.8 (0.2-1.0) mg/dL AST 22 (10-42) IU/L ALT 21 (10-60) IU/L Alkaline Phosphatase 50 (42-121) IU/L Total Protein 5.8 L (6.7-8.2) g/dL Albumin 3.3 (3.2-5.5) g/dL Globulin 2.5 (2.1-4.2) g/dL Albumin/Globulin Ratio 1.3 (1.0-2.2) 06/05/17 06/05/17 06/05/17 Range/Units 23:45 17:30 11:22 WBC (4.8-10.8) x10^3/uL RBC (4.20-5.40) 10^6/uL Hgb (12.0-16.0) g/dL Hct (37.0-47.0) % MCV (81.0-99.0) fL MCH (27.0-31.0) pg MCHC (32.0-36.0) g/dL RDW (12.0-15.0) % Plt Count (130-450) 10^3/uL MPV (7.9-10.8) fL Neut # (1.5-6.6) 10^3/uL Lymph # (1.5-3.5) 10^3/uL [place] # (0.0-1.0) 10^3/uL Eos # (0.0-0.7) 10^3/uL Baso # (0.0-0.1) 10^3/uL Absolute Nucleated RBC x10^3/uL Nucleated RBCs /100WBC Sodium (135-145) mmol/L Potassium (3.5-5.0) mmol/L Chloride (101-111) mmol/L Carbon Dioxide (21-32) mmol/L Anion Gap (6-13) BUN (6-20) mg/dL Creatinine (0.4-1.0) mg/dL Estimated GFR (MDRD) (>89) Glucose (70-100) mg/dL POC Whole Bld Glucose 115 H 132 H 100 (70 - 100) mg/dL Calcium (8.5-10.3) mg/dL Magnesium (1.7-2.8) mg/dL Total Bilirubin (0.2-1.0) mg/dL AST (10-42) IU/L ALT (10-60) IU/L Alkaline Phosphatase (42-121) IU/L Total Protein (6.7-8.2) g/dL Albumin (3.2-5.5) g/dL Globulin (2.1-4.2) g/dL Albumin/Globulin Ratio (1.0-2.2) - Current Medications Current Medications: Current Medications Generic Name Dose Route Start Last Admin Trade Name Freq PRN Reason Stop Dose Admin Aspirin 81 mg 06/05/17 09:00 06/05/17 11:04 Ecotrin PO 81 mg DAILY EZIO Administration Atorvastatin Calcium 20 mg 06/05/17 09:00 06/05/17 11:04 Lipitor PO 20 mg DAILY EZIO Administration Calcium Carbonate/Glycine 500 mg 06/05/17 09:00 06/05/17 22:38 Tums PO Not Given BID EZIO Enoxaparin Sodium 40 mg 06/05/17 09:00 06/05/17 11:05 Lovenox SUBQ 40 mg DAILY EZIO Administration Hydrochlorothiazide 25 mg 06/05/17 09:00 06/05/17 11:05 Hydrodiuril PO 25 mg DAILY EZIO Administration Hydromorphone HCl 1 mg 06/04/17 21:40 06/06/17 03:26 Dilaudid Inj IVP 1 mg Q2HR PRN Administration Pain 8 to 10 Sodium Chloride 1,000 mls @ 150 mls/hr 06/04/17 22:00 06/06/17 08:36 Normal Saline 0.9% IV 150 mls/hr .Q6H40M EZIO Administration Famotidine 50 mls @ 100 mls/hr 06/05/17 09:00 06/05/17 11:04 Pepcid 20 Mg/50 Ml IV 100 mls/hr DAILY EZIO Administration Insulin Human Regular 1 - 5 unit 06/05/17 00:00 06/06/17 06:08 Novolin R SUBQ Not Given Q6HR [facility] Protocol Lamotrigine 100 mg 06/05/17 09:00 06/05/17 18:07 Lamictal PO 100 mg BID EZIO Administration Losartan Potassium 25 mg 06/05/17 09:00 06/05/17 11:04 Cozaar PO 25 mg DAILY EIZO Administration Ondansetron HCl 4 mg 06/04/17 21:40 06/05/17 18:03 Zofran Inj IVP 4 mg Q6HR PRN Administration Nausea / Vomiting Oxycodone HCl 5 mg 06/04/17 21:40 06/05/17 04:46 Roxicodone PO 5 mg Q4HR PRN Administration Pain 5 to 7 Oxycodone HCl 10 mg 06/04/17 21:40 06/06/17 03:03 Roxicodone PO 10 mg Q4HR PRN Administration Pain 8 to 10 Polyethylene Glycol 17 gm 06/05/17 09:00 06/06/17 08:44 Miralax PO Not Given DAILY EZIO Quetiapine Fumarate 200 mg 06/04/17 23:00 06/05/17 18:07 Seroquel PO 200 mg QPM EZIO Administration Sodium Chloride 10 ml 06/04/17 21:40 06/05/17 17:50 Normal Saline Flush 0.9% IVP 10 ml PRN PRN Administration NEEDED PER PROVIDER ORDERS Sodium Chloride 10 ml 06/04/17 22:00 06/06/17 04:54 Normal Saline Flush 0.9% IVP Not Given Q8HR [facility] - Physical Exam Abdomen: positive: Non-tender Impression/Plan - Problem List Problem List: partial small bowel obstruction. She had a small bowel movement today but still has some abdominal pain present. No c/o n/v. will check small bowel series today.
[2017-06-06] MEDS: FAMOTIDINE 20 MG/50 ML 50 ML IV SCH (09:30)
[2017-06-06] MEDS: ENOXAPARIN 40 MG/0.4 ML SYRINGE SUBQ SCH (10:00)
[2017-06-06] MEDS: ATORVASTATIN 10 MG TABLET PO SCH (10:00)
[2017-06-06] MEDS: LOSARTAN 50 MG TABLET PO SCH (10:01)
[2017-06-06] MEDS: CALCIUM CARBONATE CHEW 500 MG TABLET PO SCH ×2 (10:01→20:52)
[2017-06-06] MEDS: lamoTRIgine 100 MG TABLET PO SCH ×2 (10:01→20:52)
[2017-06-06] MEDS: hydroCHLOROthiazide 25 MG TABLET PO SCH (10:01)
[2017-06-06] MEDS: ASPIRIN EC 81 MG TABLET PO SCH (10:04)
[2017-06-06] MEDS: ONDANSETRON 4 MG/2 ML VIAL IVP PRN ×2 (13:29→20:52)
[2017-06-06] MEDS: PROCHLORPERAZINE 10 MG/2 ML VIAL IVP PRN (14:39)
[2017-06-06] MEDS: SODIUM CHLORIDE FLUSH 0.9% 10 ML SYRINGE IVP PRN ×2 (14:40→15:23)
--- NOTE | 2017-06-06 15:31 | PROVIDER PROGRESS NOTE ---
Subjective - Subjective Pt reports feeling: No change Subjective: pt report small bowel movement but still abdominal pain. Objective - Vital Signs/Intake & Output Vital Signs: Vital Signs x48h Temp Pulse Resp BP Pulse Ox 06/06/17 11:48 37.1 C 93 18 123/97 H 95 06/06/17 07:59 37.3 C 86 16 125/78 97 Intake & Output: Intake & Output 06/03/17 06/04/17 06/05/17 06/06/17 23:59 23:59 23:59 23:59 Intake Total 2905 2244 Output Total 1 Balance 2904 2244 - Objective General Appearance: positive: Alert, Mild distress. negative: Lethargic Eyes Bilateral: positive: Normal inspection, PERRL ENT: positive: ENT inspection nml, Pharynx nml. negative: Purulent nasal drainage, Pharyngeal erythema, Oral lesions Neck: positive: Nml inspection, Thyroid nml, Trachea midline. negative: Lymphadenopathy (R), Lymphadenopathy (L), Stiff neck, Swelling/bruising, Tracheal deviation Respiratory: positive: Chest non-tender, No respiratory distress, Breath sounds nml. negative: Wheezes, Rales, Rhonchi Cardiovascular: positive: Regular rate & rhythm, No murmur, No gallop. negative : Systolic murmur, Diastolic murmur Peripheral Pulses: 2+ Radial (R), 2+ Radial (L), 2+ Dorsalis pedis (R), 2+ Dorsalis pedis (L) Abdomen: positive: Non-tender, No distention, Other (reduced bowel sound). negative: Tenderness, Guarding, Rebound Back: positive: Nml inspection. negative: CVA tenderness (R), CVA tenderness (L ) Skin: positive: Color nml, Warm, Dry. negative: Diaphoresis, Skin rash Extremities: positive: Non-tender, Full ROM, Nml appearance, No pedal edema. negative: Pedal edema, Calf tenderness, Joint swelling, Preston's sign/cords Neurologic/Psychiatric: positive: Oriented x3, CN's nml (2-12), Motor nml, Sensation nml, Mood/affect nml. negative: Weakness, Facial droop, Slurred/ abnml speech, Depressed mood/affect - Lab Results Fish Bones: 06/06/17 05:18 08/03/17 05:18 Other Labs: Lab Results x24hrs 06/06/17 06/06/17 06/06/17 Range/Units 11:46 05:46 05:18 WBC (4.8-10.8) x10^3/uL RBC (4.20-5.40) 10^6/uL Hgb (12.0-16.0) g/dL Hct (37.0-47.0) % MCV (81.0-99.0) fL MCH (27.0-31.0) pg MCHC (32.0-36.0) g/dL RDW (12.0-15.0) % Plt Count (130-450) 10^3/uL MPV (7.9-10.8) fL Neut # (1.5-6.6) 10^3/uL Lymph # (1.5-3.5) 10^3/uL [place] # (0.0-1.0) 10^3/uL Eos # (0.0-0.7) 10^3/uL Baso # (0.0-0.1) 10^3/uL Absolute Nucleated RBC x10^3/uL Nucleated RBCs /100WBC Sodium 141 (135-145) mmol/L Potassium 4.2 (3.5-5.0) mmol/L Chloride 108 (101-111) mmol/L Carbon Dioxide 25 (21-32) mmol/L Anion Gap 8.0 (6-13) BUN 13 (6-20) mg/dL Creatinine 1.1 H (0.4-1.0) mg/dL Estimated GFR (MDRD) 51 L (>89) Glucose 124 H (70-100) mg/dL POC Whole Bld Glucose 166 H 109 H (70 - 100) mg/dL Calcium 8.7 (8.5-10.3) mg/dL Magnesium 1.5 L (1.7-2.8) mg/dL Total Bilirubin 0.8 (0.2-1.0) mg/dL AST 22 (10-42) IU/L ALT 21 (10-60) IU/L Alkaline Phosphatase 50 (42-121) IU/L Total Protein 5.8 L (6.7-8.2) g/dL Albumin 3.3 (3.2-5.5) g/dL Globulin 2.5 (2.1-4.2) g/dL Albumin/Globulin Ratio 1.3 (1.0-2.2) 06/06/17 06/05/17 06/05/17 Range/Units 05:18 23:45 17:30 WBC 8.5 (4.8-10.8) x10^3/uL RBC 4.45 (4.20-5.40) 10^6/uL Hgb 13.4 (12.0-16.0) g/dL Hct 40.6 (37.0-47.0) % MCV 91.2 (81.0-99.0) fL MCH 30.1 (27.0-31.0) pg MCHC 33.0 (32.0-36.0) g/dL RDW 14.7 (12.0-15.0) % Plt Count 139 (130-450) 10^3/uL MPV 7.8 L (7.9-10.8) fL Neut # 6.3 (1.5-6.6) 10^3/uL Lymph # 1.1 L (1.5-3.5) 10^3/uL [place] # 0.9 (0.0-1.0) 10^3/uL Eos # 0.2 (0.0-0.7) 10^3/uL Baso # 0.0 (0.0-0.1) 10^3/uL Absolute Nucleated RBC 0.01 x10^3/uL Nucleated RBCs 0.1 /100WBC Sodium (135-145) mmol/L Potassium (3.5-5.0) mmol/L Chloride (101-111) mmol/L Carbon Dioxide (21-32) mmol/L Anion Gap (6-13) BUN (6-20) mg/dL Creatinine (0.4-1.0) mg/dL Estimated GFR (MDRD) (>89) Glucose (70-100) mg/dL POC Whole Bld Glucose 115 H 132 H (70 - 100) mg/dL Calcium (8.5-10.3) mg/dL Magnesium (1.7-2.8) mg/dL Total Bilirubin (0.2-1.0) mg/dL AST (10-42) IU/L ALT (10-60) IU/L Alkaline Phosphatase (42-121) IU/L Total Protein (6.7-8.2) g/dL Albumin (3.2-5.5) g/dL Globulin (2.1-4.2) g/dL Albumin/Globulin Ratio (1.0-2.2) Assessment/Plan - Problem List (1) Small bowel obstruction Impression: pt report she still has abdominal pain, but has small bowel movement. encourage pt move more. follow up surgeon recommendation (2) Type 2 diabetes mellitus Impression: closely monitor, hypoglycemia protocol Qualifiers: Proliferative retinopathy type: stable Diabetes mellitus intermediate project manager insulin use: without mcc use (3) FELIX (acute kidney injury) Impression: slight improved from 1.3 creatinine to 1.1, closely monitor (4) Hypertension Impression: stable, continue treatment Qualifiers: Hypertension type: essential hypertension Qualified Code(s): I10 - Essential (primary) hypertension (6) Schizoaffective disorder Qualifiers: Schizoaffective disorder type: bipolar Qualified Code(s): F25.0 - Schizoaffective disorder, bipolar type
[2017-06-06] MEDS: QUEtiapine 100 MG TABLET PO SCH (20:52)
[2017-06-07] MEDS: INSULIN REGULAR HUMAN 100 UNIT/1 ML 10 ML MDV SUBQ SCH ×4 (00:09→18:42)
[2017-06-07] MEDS: SODIUM CHLORIDE 0.9% 1,000 ML IV SCH ×3 (02:37→21:46)
[2017-06-07] MEDS: oxyCODONE 5 MG TABLET PO PRN (04:26)
[2017-06-07] MEDS: SODIUM CHLORIDE FLUSH 0.9% 10 ML SYRINGE IVP SCH ×3 (04:55→21:33)
[2017-06-07] MEDS: HYDROmorphone 1 MG/ML SYRINGE IVP PRN ×4 (05:01→21:12)
[2017-06-07] MEDS: ONDANSETRON 4 MG/2 ML VIAL IVP PRN (05:06)
[2017-06-07 05:34] LABS: BASOPHILS % (AUTO) 0.2 %; EOSINOPHILS # (AUTO) 0.1 10^3/uL (0.0-0.7); EOSINOPHILS % (AUTO) 0.8 %; HCT - HEMATOCRIT 40.6 % (37.0-47.0); HGB - HEMOGLOBIN 13.5 g/dL (12.0-16.0); LYMPHOCYTES # (AUTO) 1.1 10^3/uL (1.5-3.5); LYMPHOCYTES % (AUTO) 15.1 %; MEAN CORPUSCULAR HEMOGLOBIN 30.3 pg (27.0-31.0); MEAN CORPUSCULAR HGB CONC 33.4 g/dL (32.0-36.0); MEAN CORPUSCULAR VOLUME 90.8 fL (81.0-99.0); MONOCYTES # (AUTO) 0.8 10^3/uL (0.0-1.0); MONOCYTES % (AUTO) 11.5 %; NEUTROPHILS # (AUTO) 5.3 10^3/uL (1.5-6.6); NEUTROPHILS % (AUTO) 72.4 %; RED BLOOD COUNT 4.47 10^6/uL (4.20-5.40); RED CELL DISTRIBUTION WIDTH 14.6 % (12.0-15.0); UNCORRECTED WHITE BLOOD COUNT 7.3 x10^3/uL; WHITE BLOOD COUNT 7.3 x10^3/uL (4.8-10.8)
[2017-06-07 05:39] LABS: ALBUMIN/GLOBULIN RATIO 1.4 (1.0-2.2); CREATININE 1.3 mg/dL (0.4-1.0); MAGNESIUM 1.6 mg/dL (1.7-2.8); POTASSIUM 4.1 mmol/L (3.5-5.0); TOTAL PROTEIN 6.2 g/dL (6.7-8.2)
[2017-06-07] MEDS ORDERED: MAGNESIUM SULFATE 1 GM in SODIUM CHLORIDE 0.9% 50 ML IV ONE (08:17)
[2017-06-07] MEDS: ASPIRIN EC 81 MG TABLET PO SCH (09:30)
[2017-06-07] MEDS: ENOXAPARIN 40 MG/0.4 ML SYRINGE SUBQ SCH (09:30)
[2017-06-07] MEDS: LOSARTAN 50 MG TABLET PO SCH (09:30)
[2017-06-07] MEDS: CALCIUM CARBONATE CHEW 500 MG TABLET PO SCH (09:30)
[2017-06-07] MEDS: ATORVASTATIN 10 MG TABLET PO SCH (09:30)
[2017-06-07] MEDS: hydroCHLOROthiazide 25 MG TABLET PO SCH (09:30)
[2017-06-07] MEDS: SODIUM CHLORIDE FLUSH 0.9% 10 ML SYRINGE IVP PRN (09:48)
[2017-06-07] MEDS: PROCHLORPERAZINE 10 MG/2 ML VIAL IVP PRN (09:49)
[2017-06-07] MEDS ORDERED: LACTATED RINGERS 1,000 ML IV ONE ×2 (11:13→15:00)
--- NOTE | 2017-06-07 11:16 | XRAY Report ---
SMALL BOWEL FOLLOW THROUGH: 06/07/2017 CLINICAL INDICATION: Bowel obstruction. FINDINGS: Initial bias binding cutter view of the abdomen demonstrates dilated, gas-filled small bowel loop in the left mid abdomen, new from previous plain film of 06/05/2017. The patient ingested barium. There is dilatation of proximal and mid small bowel loops. There was an abrupt halt to progress of the barium at two hours, which persisted through multiple serial films to twenty-four hours. Distal small bowel and colon were never opacified. IMPRESSION: COMPLETE MECHANICAL SMALL BOWEL OBSTRUCTION, PERSISTING AT TWENTY-FOUR HOURS. JOB #: [id number] EXT JOB #:[id number]
[2017-06-07] MEDS ORDERED: PHENYLEPHRINE 50 MG/5 ML VIAL IV ONE (13:00)
[2017-06-07] MEDS ORDERED: cefOXitin 2 GM in SODIUM CHLORIDE 0.9% MINIBAG 100 ML IV SCH (13:00)
[2017-06-07] MEDS ORDERED: ePHEDrine 50 MG/ML AMP IVP ONE (13:00)
[2017-06-07] MEDS ORDERED: DEXAMETHASONE 4 MG/ML VIAL IVP ONE (13:00)
[2017-06-07] MEDS ORDERED: ACETAMINOPHEN 1,000 MG/100 ML VIAL IV ONE (13:00)
[2017-06-07] MEDS ORDERED: SUCCINYLCHOLINE 200 MG/10 ML VIAL IVP ONE (13:00)
[2017-06-07] MEDS ORDERED: MIDAZOLAM 2 MG/2 ML VIAL IVP ONE (13:00)
[2017-06-07] MEDS ORDERED: fentaNYL 100 MCG/2 ML VIAL IVP ONE (13:00)
[2017-06-07] MEDS ORDERED: PROPOFOL 200 MG/20 ML VIAL IVP ONE (13:00)
[2017-06-07] MEDS ORDERED: ONDANSETRON 4 MG/2 ML VIAL IVP ONE (13:00)
[2017-06-07] MEDS ORDERED: SODIUM CHLORIDE 0.9% 10 ML VIAL IV ONE (13:00)
[2017-06-07] MEDS ORDERED: LIDOCAINE-MPF 2% 5 ML VIAL IM ONE (13:00)
[2017-06-07] MEDS ORDERED: ROCURONIUM 50 MG/5 ML VIAL IVP ONE (13:00)
[2017-06-07] MEDS: FAMOTIDINE 20 MG/50 ML 50 ML IV SCH (14:04)
[2017-06-07] MEDS: lamoTRIgine 100 MG TABLET PO SCH ×2 (14:04→21:11)
[2017-06-07] MEDS: POLYETHYLENE GLYCOL 3350 17 GM PACKET PO SCH (14:05)
[2017-06-07] MEDS ORDERED: fentaNYL 100 MCG/2 ML VIAL ONE ×2 (14:32→14:55)
[2017-06-07] MEDS ORDERED: HYDROmorphone 1 MG/ML SYRINGE ONE ×2 (14:33→14:56)
[2017-06-07] MEDS ORDERED: SODIUM CHLORIDE FLUSH 0.9% 10 ML SYRINGE IVP ONE (14:34)
[2017-06-07] MEDS ORDERED: KETOROLAC 15 MG/ML VIAL ONE (14:37)
[2017-06-07] MEDS: cefOXitin 1 GM in SODIUM CHLORIDE 0.9% MINIBAG 100 ML IV SCH ×2 (17:10→21:33)
[2017-06-07] MEDS: ACETAMINOPHEN 1,000 MG/100 ML 100 ML IV SCH ×2 (17:11→21:32)
--- NOTE | 2017-06-07 18:25 | PROVIDER PROGRESS NOTE ---
Subjective - Subjective Pt reports feeling: Improved Subjective: pt came back with surgery, alert, oriented plus 3, state her pain is good control. denies chest pain, headache. Objective - Vital Signs/Intake & Output Vital Signs: Vital Signs x48h Temp Pulse Resp BP Pulse Ox 06/07/17 17:01 37.1 C 96 16 109/59 L 96 06/07/17 16:57 96 16 98/82 H 96 06/07/17 16:36 37.5 C 97 16 122/62 94 06/07/17 16:00 100 06/07/17 15:45 100 06/07/17 15:30 100 06/07/17 15:15 99 06/07/17 15:00 100 06/07/17 14:45 100 06/07/17 14:40 100 06/07/17 14:35 100 06/07/17 14:28 100 06/07/17 14:22 97 Intake & Output: Intake & Output 06/04/17 06/05/17 06/06/17 06/07/17 23:59 23:59 23:59 23:59 Intake Total 2905 3134 713 Output Total 1 Balance 2904 3134 713 - Objective General Appearance: positive: No acute distress, Alert. negative: Anxious, Lethargic Eyes Bilateral: positive: Normal inspection, PERRL. negative: No lid inflammation, Conjunctivae nml ENT: positive: ENT inspection nml, Pharynx nml. negative: No signs of dehydration, Purulent nasal drainage, Pharyngeal erythema, Dry mucous membranes Neck: positive: Nml inspection, Thyroid nml, Trachea midline. negative: Lymphadenopathy (R), Lymphadenopathy (L), Kernig's sign, Carotid bruit, Swelling /bruising, Tracheal deviation Respiratory: positive: Chest non-tender, No respiratory distress, Breath sounds nml. negative: Wheezes, Rales, Rhonchi Cardiovascular: positive: Regular rate & rhythm, No murmur, No gallop, Bradycardia. negative: Tachycardia, Systolic murmur, Diastolic murmur Peripheral Pulses: 2+ Radial (R), 2+ Radial (L), 2+ Dorsalis pedis (R), 2+ Dorsalis pedis (L) Abdomen: positive: Non-tender, No distention, Other (hypo bowel sound). negative: Tenderness, Guarding, Rebound Back: positive: Nml inspection. negative: CVA tenderness (R), CVA tenderness (L ) Skin: positive: Color nml, Warm, Dry. negative: Diaphoresis, Skin rash Extremities: positive: Non-tender, Full ROM, Nml appearance, No pedal edema. negative: Pedal edema, Calf tenderness, Joint swelling, Preston's sign/cords Neurologic/Psychiatric: positive: Oriented x3, Motor nml, Sensation nml, Mood/ affect nml. negative: Disoriented to person, Disoriented to place, Disoriented to time, Weakness, Sensory loss, Facial droop, Slurred/abnml speech, Depressed mood/affect - Lab Results Fish Bones: 06/07/17 04:42 06/07/17 04:42 Other Labs: Lab Results x24hrs 06/07/17 06/07/17 06/07/17 Range/Units 18:03 14:43 11:42 WBC (4.8-10.8) x10^3/uL RBC (4.20-5.40) 10^6/uL Hgb (12.0-16.0) g/dL Hct (37.0-47.0) % MCV (81.0-99.0) fL MCH (27.0-31.0) pg MCHC (32.0-36.0) g/dL RDW (12.0-15.0) % Plt Count (130-450) 10^3/uL MPV (7.9-10.8) fL Neut # (1.5-6.6) 10^3/uL Lymph # (1.5-3.5) 10^3/uL [place] # (0.0-1.0) 10^3/uL Eos # (0.0-0.7) 10^3/uL Baso # (0.0-0.1) 10^3/uL Absolute Nucleated RBC x10^3/uL Nucleated RBCs /100WBC Sodium (135-145) mmol/L Potassium (3.5-5.0) mmol/L Chloride (101-111) mmol/L Carbon Dioxide (21-32) mmol/L Anion Gap (6-13) BUN (6-20) mg/dL Creatinine (0.4-1.0) mg/dL Estimated GFR (MDRD) (>89) Glucose (70-100) mg/dL POC Whole Bld Glucose 162 H 144 H 132 H (70 - 100) mg/dL Calcium (8.5-10.3) mg/dL Ionized Calcium (4.8-5.6) mg/dL Magnesium (1.7-2.8) mg/dL Total Bilirubin (0.2-1.0) mg/dL AST (10-42) IU/L ALT (10-60) IU/L Alkaline Phosphatase (42-121) IU/L Total Protein (6.7-8.2) g/dL Albumin (3.2-5.5) g/dL Globulin (2.1-4.2) g/dL Albumin/Globulin Ratio (1.0-2.2) 06/07/17 06/07/17 06/07/17 Range/Units 05:59 04:42 04:42 WBC 7.3 (4.8-10.8) x10^3/uL RBC 4.47 (4.20-5.40) 10^6/uL Hgb 13.5 (12.0-16.0) g/dL Hct 40.6 (37.0-47.0) % MCV 90.8 (81.0-99.0) fL MCH 30.3 (27.0-31.0) pg MCHC 33.4 (32.0-36.0) g/dL RDW 14.6 (12.0-15.0) % Plt Count 158 (130-450) 10^3/uL MPV 8.0 (7.9-10.8) fL Neut # 5.3 (1.5-6.6) 10^3/uL Lymph # 1.1 L (1.5-3.5) 10^3/uL [place] # 0.8 (0.0-1.0) 10^3/uL Eos # 0.1 (0.0-0.7) 10^3/uL Baso # 0.0 (0.0-0.1) 10^3/uL Absolute Nucleated RBC 0.00 x10^3/uL Nucleated RBCs 0.0 /100WBC Sodium 139 (135-145) mmol/L Potassium 4.1 (3.5-5.0) mmol/L Chloride 106 (101-111) mmol/L Carbon Dioxide 23 (21-32) mmol/L Anion Gap 10.0 (6-13) BUN 17 (6-20) mg/dL Creatinine 1.3 H (0.4-1.0) mg/dL Estimated GFR (MDRD) 42 L (>89) Glucose 147 H (70-100) mg/dL POC Whole Bld Glucose 147 H (70 - 100) mg/dL Calcium 9.0 (8.5-10.3) mg/dL Ionized Calcium (4.8-5.6) mg/dL Magnesium 1.6 L (1.7-2.8) mg/dL Total Bilirubin 1.0 (0.2-1.0) mg/dL AST 25 (10-42) IU/L ALT 20 (10-60) IU/L Alkaline Phosphatase 50 (42-121) IU/L Total Protein 6.2 L (6.7-8.2) g/dL Albumin 3.6 (3.2-5.5) g/dL Globulin 2.6 (2.1-4.2) g/dL Albumin/Globulin Ratio 1.4 (1.0-2.2) 06/06/17 06/05/17 Range/Units 23:57 06:25 WBC (4.8-10.8) x10^3/uL RBC (4.20-5.40) 10^6/uL Hgb (12.0-16.0) g/dL Hct (37.0-47.0) % MCV (81.0-99.0) fL MCH (27.0-31.0) pg MCHC (32.0-36.0) g/dL RDW (12.0-15.0) % Plt Count (130-450) 10^3/uL MPV (7.9-10.8) fL Neut # (1.5-6.6) 10^3/uL Lymph # (1.5-3.5) 10^3/uL [place] # (0.0-1.0) 10^3/uL Eos # (0.0-0.7) 10^3/uL Baso # (0.0-0.1) 10^3/uL Absolute Nucleated RBC x10^3/uL Nucleated RBCs /100WBC Sodium (135-145) mmol/L Potassium (3.5-5.0) mmol/L Chloride (101-111) mmol/L Carbon Dioxide (21-32) mmol/L Anion Gap (6-13) BUN (6-20) mg/dL Creatinine (0.4-1.0) mg/dL Estimated GFR (MDRD) (>89) Glucose (70-100) mg/dL POC Whole Bld Glucose 158 H (70 - 100) mg/dL Calcium (8.5-10.3) mg/dL Ionized Calcium 5.2 (4.8-5.6) mg/dL Magnesium (1.7-2.8) mg/dL Total Bilirubin (0.2-1.0) mg/dL AST (10-42) IU/L ALT (10-60) IU/L Alkaline Phosphatase (42-121) IU/L Total Protein (6.7-8.2) g/dL Albumin (3.2-5.5) g/dL Globulin (2.1-4.2) g/dL Albumin/Globulin Ratio (1.0-2.2) Assessment/Plan - Problem List (1) Small bowel obstruction Impression: status post bowel resection per surgeon report. follow up surgeon, NG tube, IVF , IV antibiotics. (2) Type 2 diabetes mellitus Impression: ACHS, hypoglycemia protocol, pt is NPO status Qualifiers: Proliferative retinopathy type: stable Diabetes mellitus custodial insulin use: without terminal gauger use (3) FELIX (acute kidney injury) Impression: stable, closely monitor, hydration (4) Hypertension Impression: hydration, status post surgery, closely monitor Qualifiers: Hypertension type: essential hypertension Qualified Code(s): I10 - Essential (primary) hypertension (5) Hypercalcemia Impression: stable, recheck CMP (6) Schizoaffective disorder Impression: stable, Qualifiers: Schizoaffective disorder type: bipolar Qualified Code(s): F25.0 - Schizoaffective disorder, bipolar type
[2017-06-07] MEDS: QUEtiapine 100 MG TABLET PO SCH (21:12)
[2017-06-08] MEDS: ONDANSETRON 4 MG/2 ML VIAL IVP PRN ×2 (00:39→06:31)
[2017-06-08] MEDS: HYDROmorphone 1 MG/ML SYRINGE IVP PRN ×7 (00:40→15:28)
[2017-06-08] MEDS: INSULIN REGULAR HUMAN 100 UNIT/1 ML 10 ML MDV SUBQ SCH ×4 (01:42→18:37)
[2017-06-08] MEDS: SODIUM CHLORIDE 0.9% 1,000 ML IV SCH ×4 (01:44→18:36)
[2017-06-08] MEDS: ACETAMINOPHEN 1,000 MG/100 ML 100 ML IV SCH ×4 (03:41→23:02)
[2017-06-08] MEDS: cefOXitin 1 GM in SODIUM CHLORIDE 0.9% MINIBAG 100 ML IV SCH ×3 (05:03→23:04)
[2017-06-08 06:02] LABS: BASOPHILS % (AUTO) 0.2 %; EOSINOPHILS % (AUTO) 0.1 %; HCT - HEMATOCRIT 39.2 % (37.0-47.0); HGB - HEMOGLOBIN 12.8 g/dL (12.0-16.0); LYMPHOCYTES # (AUTO) 0.4 10^3/uL (1.5-3.5); LYMPHOCYTES % (AUTO) 6.2 %; MEAN CORPUSCULAR HEMOGLOBIN 29.9 pg (27.0-31.0); MEAN CORPUSCULAR HGB CONC 32.6 g/dL (32.0-36.0); MEAN CORPUSCULAR VOLUME 91.6 fL (81.0-99.0); MEAN PLATELET VOLUME 8.2 fL (7.9-10.8); MONOCYTES # (AUTO) 0.8 10^3/uL (0.0-1.0); MONOCYTES % (AUTO) 12.6 %; NEUTROPHILS # (AUTO) 5.4 10^3/uL (1.5-6.6); NEUTROPHILS % (AUTO) 80.9 %; RED BLOOD COUNT 4.28 10^6/uL (4.20-5.40); RED CELL DISTRIBUTION WIDTH 14.2 % (12.0-15.0); UNCORRECTED WHITE BLOOD COUNT 6.6 x10^3/uL; WHITE BLOOD COUNT 6.6 x10^3/uL (4.8-10.8)
[2017-06-08 06:15] LABS: ALBUMIN/GLOBULIN RATIO 1.1 (1.0-2.2); BILIRUBIN,TOTAL 1.3 mg/dL (0.2-1.0); CALCIUM 8.2 mg/dL (8.5-10.3); CREATININE 1.2 mg/dL (0.4-1.0); MAGNESIUM 1.5 mg/dL (1.7-2.8); POTASSIUM 4.6 mmol/L (3.5-5.0); TOTAL PROTEIN 5.2 g/dL (6.7-8.2)
[2017-06-08] MEDS: SODIUM CHLORIDE FLUSH 0.9% 10 ML SYRINGE IVP SCH ×3 (06:31→22:55)
[2017-06-08] MEDS ORDERED: MAGNESIUM SULFATE 1 GM in SODIUM CHLORIDE 0.9% 50 ML IV ONE (07:22)
[2017-06-08] MEDS ORDERED: PHENOL THROAT SPRAY 177 ML MM PRN (07:23)
[2017-06-08] MEDS ORDERED: BENZOCAINE/MENTHOL LOZENGE MM PRN (07:23)
[2017-06-08] MEDS: ATORVASTATIN 10 MG TABLET PO SCH (08:36)
[2017-06-08] MEDS: LOSARTAN 50 MG TABLET PO SCH (08:37)
[2017-06-08] MEDS: lamoTRIgine 100 MG TABLET PO SCH ×2 (08:38→21:13)
[2017-06-08] MEDS: hydroCHLOROthiazide 25 MG TABLET PO SCH (08:45)
[2017-06-08] MEDS: FAMOTIDINE 20 MG/50 ML 50 ML IV SCH (11:13)
[2017-06-08] MEDS ORDERED: MAGNESIUM SULFATE 2 GRAM 50 ML IV ONE (11:15)
--- NOTE | 2017-06-08 11:16 | PROVIDER PROGRESS NOTE ---
Subjective - General Admit Date: 06/04/17 Procedure Date: 06/07/17 Post Op Days: 1 Procedure Performed: ex lap, SBR, ROSARIO - Review of Systems Wound/Incisions: positive: Dressing dry and intact Drain Type: NGT Drain Output Description: bilious Approximate mls Output: 800 cc/12 hrs General: positive: Other (somewhat disoriented from pain medications) Pulmonary: positive: No symptoms Cardiovascular: positive: No symptoms Gastrointestinal: positive: Nausea, Abdominal pain (improved but still present) , Other (no flatus) Psychiatric: positive: Mood lability - Other Other Information/Narrative: OOB to chair, bathroom and hallway Objective - Patient Data Reviewed Vital Signs: Yes Vital Signs: Vital Signs x48h Temp Pulse Resp BP Pulse Ox 06/08/17 08:58 37.6 C H 96 108/57 L 06/08/17 07:49 38.1 C H 99 16 111/50 L 95 Intake & Output: Intake and Output Totals x24h 06/06/17 06/07/17 06/08/17 23:59 23:59 23:59 Intake Total 3134 2427 1330 Output Total 475 450 Balance 3134 1952 880 - Lab Results Lab Results: 06/08/17 05:12 06/08/17 05:12 Other Lab Results: Lab Results x24hrs 06/08/17 06/08/17 06/08/17 Range/Units 05:59 05:12 05:12 WBC 6.6 (4.8-10.8) x10^3/uL RBC 4.28 (4.20-5.40) 10^6/uL Hgb 12.8 (12.0-16.0) g/dL Hct 39.2 (37.0-47.0) % MCV 91.6 (81.0-99.0) fL MCH 29.9 (27.0-31.0) pg MCHC 32.6 (32.0-36.0) g/dL RDW 14.2 (12.0-15.0) % Plt Count 153 (130-450) 10^3/uL MPV 8.2 (7.9-10.8) fL Neut # 5.4 (1.5-6.6) 10^3/uL Lymph # 0.4 L (1.5-3.5) 10^3/uL [place] # 0.8 (0.0-1.0) 10^3/uL Eos # 0.0 (0.0-0.7) 10^3/uL Baso # 0.0 (0.0-0.1) 10^3/uL Absolute Nucleated RBC 0.00 x10^3/uL Nucleated RBCs 0.0 /100WBC Sodium 139 (135-145) mmol/L Potassium 4.6 (3.5-5.0) mmol/L Chloride 109 (101-111) mmol/L Carbon Dioxide 19 L (21-32) mmol/L Anion Gap 11.0 (6-13) BUN 19 (6-20) mg/dL Creatinine 1.2 H (0.4-1.0) mg/dL Estimated GFR (MDRD) 46 L (>89) Glucose 167 H (70-100) mg/dL POC Whole Bld Glucose 142 H (70 - 100) mg/dL Calcium 8.2 L (8.5-10.3) mg/dL Ionized Calcium (4.8-5.6) mg/dL Magnesium 1.5 L (1.7-2.8) mg/dL Total Bilirubin 1.3 H (0.2-1.0) mg/dL AST 20 (10-42) IU/L ALT 17 (10-60) IU/L Alkaline Phosphatase 36 L (42-121) IU/L Total Protein 5.2 L (6.7-8.2) g/dL Albumin 2.7 L (3.2-5.5) g/dL Globulin 2.5 (2.1-4.2) g/dL Albumin/Globulin Ratio 1.1 (1.0-2.2) 06/08/17 06/07/17 06/07/17 Range/Units 00:08 18:03 14:43 WBC (4.8-10.8) x10^3/uL RBC (4.20-5.40) 10^6/uL Hgb (12.0-16.0) g/dL Hct (37.0-47.0) % MCV (81.0-99.0) fL MCH (27.0-31.0) pg MCHC (32.0-36.0) g/dL RDW (12.0-15.0) % Plt Count (130-450) 10^3/uL MPV (7.9-10.8) fL Neut # (1.5-6.6) 10^3/uL Lymph # (1.5-3.5) 10^3/uL [place] # (0.0-1.0) 10^3/uL Eos # (0.0-0.7) 10^3/uL Baso # (0.0-0.1) 10^3/uL Absolute Nucleated RBC x10^3/uL Nucleated RBCs /100WBC Sodium (135-145) mmol/L Potassium (3.5-5.0) mmol/L Chloride (101-111) mmol/L Carbon Dioxide (21-32) mmol/L Anion Gap (6-13) BUN (6-20) mg/dL Creatinine (0.4-1.0) mg/dL Estimated GFR (MDRD) (>89) Glucose (70-100) mg/dL POC Whole Bld Glucose 135 H 162 H 144 H (70 - 100) mg/dL Calcium (8.5-10.3) mg/dL Ionized Calcium (4.8-5.6) mg/dL Magnesium (1.7-2.8) mg/dL Total Bilirubin (0.2-1.0) mg/dL AST (10-42) IU/L ALT (10-60) IU/L Alkaline Phosphatase (42-121) IU/L Total Protein (6.7-8.2) g/dL Albumin (3.2-5.5) g/dL Globulin (2.1-4.2) g/dL Albumin/Globulin Ratio (1.0-2.2) 06/07/17 06/05/17 Range/Units 11:42 06:25 WBC (4.8-10.8) x10^3/uL RBC (4.20-5.40) 10^6/uL Hgb (12.0-16.0) g/dL Hct (37.0-47.0) % MCV (81.0-99.0) fL MCH (27.0-31.0) pg MCHC (32.0-36.0) g/dL RDW (12.0-15.0) % Plt Count (130-450) 10^3/uL MPV (7.9-10.8) fL Neut # (1.5-6.6) 10^3/uL Lymph # (1.5-3.5) 10^3/uL [place] # (0.0-1.0) 10^3/uL Eos # (0.0-0.7) 10^3/uL Baso # (0.0-0.1) 10^3/uL Absolute Nucleated RBC x10^3/uL Nucleated RBCs /100WBC Sodium (135-145) mmol/L Potassium (3.5-5.0) mmol/L Chloride (101-111) mmol/L Carbon Dioxide (21-32) mmol/L Anion Gap (6-13) BUN (6-20) mg/dL Creatinine (0.4-1.0) mg/dL Estimated GFR (MDRD) (>89) Glucose (70-100) mg/dL POC Whole Bld Glucose 132 H (70 - 100) mg/dL Calcium (8.5-10.3) mg/dL Ionized Calcium 5.2 (4.8-5.6) mg/dL Magnesium (1.7-2.8) mg/dL Total Bilirubin (0.2-1.0) mg/dL AST (10-42) IU/L ALT (10-60) IU/L Alkaline Phosphatase (42-121) IU/L Total Protein (6.7-8.2) g/dL Albumin (3.2-5.5) g/dL Globulin (2.1-4.2) g/dL Albumin/Globulin Ratio (1.0-2.2) - Current Medications Current Medications: Current Medications Generic Name Dose Route Start Last Admin Trade Name Freq PRN Reason Stop Dose Admin Atorvastatin Calcium 20 mg 06/05/17 09:00 06/08/17 08:36 Lipitor PO 20 mg DAILY EZIO Administration Hydrochlorothiazide 25 mg 06/05/17 09:00 06/08/17 08:45 Hydrodiuril PO 25 mg DAILY EZIO Administration Hydromorphone HCl 1 mg 06/07/17 15:08 06/08/17 01:41 Dilaudid Inj IVP 1 mg Q2HR PRN Administration PAIN Hydromorphone HCl 2 mg 06/07/17 15:09 06/08/17 09:32 Dilaudid Inj IVP 2 mg Q2HR PRN Administration Pain 8 to 10 Sodium Chloride 1,000 mls @ 150 mls/hr 06/04/17 22:00 06/08/17 05:02 Normal Saline 0.9% IV 150 mls/hr .Q6H40M EZIO Administration Famotidine 50 mls @ 100 mls/hr 06/05/17 09:00 06/08/17 11:13 Pepcid 20 Mg/50 Ml IV 100 mls/hr DAILY EZIO Administration Cefoxitin Sodium 1 gm/ Sodium 100 mls @ 200 mls/hr 06/07/17 16:00 06/08/17 05: 03 Chloride IV 200 mls/hr TID EZIO Administration Acetaminophen 100 mls @ 400 mls/hr 06/07/17 16:00 06/08/17 10:00 Ofirmev IV 400 mls/hr Q6H EZIO Administration Insulin Human Regular 1 - 5 unit 06/05/17 00:00 06/08/17 06:56 Novolin R SUBQ 1 unit Q6HR EIZO Administration Protocol Lamotrigine 100 mg 06/05/17 09:00 06/08/17 08:38 Lamictal PO 100 mg BID EZIO Administration Losartan Potassium 25 mg 06/05/17 09:00 06/08/17 08:37 Cozaar PO 25 mg DAILY EZIO Administration Ondansetron HCl 4 mg 06/04/17 21:40 06/08/17 06:31 Zofran Inj IVP 4 mg Q6HR PRN Administration Nausea / Vomiting Prochlorperazine Edisylate 10 mg 06/04/17 21:40 06/07/17 09:49 Compazine Inj IVP 10 mg Q6HR PRN Administration Nausea / Vomiting Promethazine HCl 25 mg 06/04/17 21:40 06/06/17 16:17 Phenergan Inj IM 25 mg Q6HR PRN Administration Nausea / Vomiting Quetiapine Fumarate 200 mg 06/04/17 23:00 06/07/17 21:12 Seroquel PO Not Given QPM EZIO Sodium Chloride 10 ml 06/04/17 21:40 06/07/17 09:48 Normal Saline Flush 0.9% IVP 10 ml PRN PRN Administration NEEDED PER PROVIDER ORDERS Sodium Chloride 10 ml 06/04/17 22:00 06/08/17 07:14 Normal Saline Flush 0.9% IVP Not Given Q8HR EZIO - Physical Exam Wound/Incisions: positive: Dressing dry and intact General Appearance: positive: No acute distress Respiratory: positive: No respiratory distress Cardiovascular: positive: Regular rate & rhythm Abdomen: positive: Other (soft, non-distended, appropriately TTP.) Extremities: positive: No pedal edema Neurologic/Psychiatric: positive: Oriented x3 Impression/Plan - Problem List Problem List: s/p ex lap, SBR, ROSARIO POD 1 - DC bashir - await bowel function - encourage ambulation - she is tolerating clamping the NGT and administering home medications - con't IV fluids. monitor electrolytes. - slightly elevated temp. Encourage IS. Will monitor. She is receiving cefoxitin
--- NOTE | 2017-06-08 11:22 | XRAY Preliminary Report ---
Exam: XR Chest 1 View IMPRESSION: No acute cardiopulmonary process. [facility] SITE ID: [id number]
--- NOTE | 2017-06-08 11:25 | XRAY Report ---
EXAM: CHEST RADIOGRAPHY EXAM DATE: 06/08/2017 11:08 AM. CLINICAL HISTORY: Fever. COMPARISON: None. TECHNIQUE: 1 view. FINDINGS: Lungs/Pleura: Lung volumes are small, likely due to shallow inspiratory effort, resulting in mild pul monary vasculature crowding. No consolidation. No pleural effusion or pneumothorax Mediastinum: Within exam limitations, cardiomediastinal contour is normal. Other: Nasogastric tube extends at least to the body of the stomach, incompletely visualized. IMPRESSION: No acute cardiopulmonary process. [facility] Referring Provider Line: [phone] SITE ID: [id number]
--- NOTE | 2017-06-08 17:20 | PROVIDER PROGRESS NOTE ---
Subjective - Subjective Pt reports feeling: Improved Subjective: pt report she feels better after surgery, pain is the control. Denies chest pain , sob. Objective - Vital Signs/Intake & Output Vital Signs: Vital Signs x48h Temp Pulse Resp BP Pulse Ox 06/08/17 15:34 37.1 C 96 16 105/50 L 97 06/08/17 13:06 37.1 C 98/53 L Intake & Output: Intake & Output 06/05/17 06/06/17 06/07/17 06/08/17 23:59 23:59 23:59 23:59 Intake Total 2905 3134 2427 2416 Output Total 1 901 1900 Balance 2904 3134 1952 516 - Objective General Appearance: positive: No acute distress, Alert. negative: Anxious Eyes Bilateral: positive: Normal inspection, PERRL. negative: No lid inflammation, Conjunctivae nml ENT: positive: ENT inspection nml, Pharynx nml, No signs of dehydration. negative: Purulent nasal drainage, Pharyngeal erythema Neck: positive: Nml inspection, Thyroid nml, Trachea midline. negative: Lymphadenopathy (R), Lymphadenopathy (L), Carotid bruit Respiratory: positive: Chest non-tender, No respiratory distress, Breath sounds nml. negative: Wheezes, Rales, Rhonchi Cardiovascular: positive: Regular rate & rhythm, No murmur, Irregularly irregular. negative: Tachycardia, Bradycardia, Systolic murmur, Diastolic murmur Peripheral Pulses: 2+ Radial (R), 2+ Radial (L), 2+ Dorsalis pedis (R), 2+ Dorsalis pedis (L) Abdomen: positive: Non-tender, No distention, Other (reduced bowel sound). negative: Tenderness, Guarding, Rebound Back: positive: Nml inspection. negative: CVA tenderness (R), CVA tenderness (L ) Skin: positive: Color nml, Warm, Dry. negative: Diaphoresis, Pallor, Skin rash Extremities: positive: Non-tender, Full ROM, Nml appearance. negative: Pedal edema, Calf tenderness, Joint swelling Neurologic/Psychiatric: positive: Oriented x3, CN's nml (2-12), Sensation nml. negative: Disoriented to person, Disoriented to place, Disoriented to time, Weakness, Sensory loss, Facial droop, Slurred/abnml speech - Lab Results Fish Bones: 06/08/17 05:12 06/08/17 05:12 Other Labs: Lab Results x24hrs 06/08/17 06/08/17 06/08/17 Range/Units 11:15 05:59 05:12 WBC (4.8-10.8) x10^3/uL RBC (4.20-5.40) 10^6/uL Hgb (12.0-16.0) g/dL Hct (37.0-47.0) % MCV (81.0-99.0) fL MCH (27.0-31.0) pg MCHC (32.0-36.0) g/dL RDW (12.0-15.0) % Plt Count (130-450) 10^3/uL MPV (7.9-10.8) fL Neut # (1.5-6.6) 10^3/uL Lymph # (1.5-3.5) 10^3/uL [place] # (0.0-1.0) 10^3/uL Eos # (0.0-0.7) 10^3/uL Baso # (0.0-0.1) 10^3/uL Absolute Nucleated RBC x10^3/uL Nucleated RBCs /100WBC Sodium 139 (135-145) mmol/L Potassium 4.6 (3.5-5.0) mmol/L Chloride 109 (101-111) mmol/L Carbon Dioxide 19 L (21-32) mmol/L Anion Gap 11.0 (6-13) BUN 19 (6-20) mg/dL Creatinine 1.2 H (0.4-1.0) mg/dL Estimated GFR (MDRD) 46 L (>89) Glucose 167 H (70-100) mg/dL POC Whole Bld Glucose 160 H 142 H (70 - 100) mg/dL Calcium 8.2 L (8.5-10.3) mg/dL Magnesium 1.5 L (1.7-2.8) mg/dL Total Bilirubin 1.3 H (0.2-1.0) mg/dL AST 20 (10-42) IU/L ALT 17 (10-60) IU/L Alkaline Phosphatase 36 L (42-121) IU/L Total Protein 5.2 L (6.7-8.2) g/dL Albumin 2.7 L (3.2-5.5) g/dL Globulin 2.5 (2.1-4.2) g/dL Albumin/Globulin Ratio 1.1 (1.0-2.2) 06/08/17 06/08/17 06/07/17 Range/Units 05:12 00:08 18:03 WBC 6.6 (4.8-10.8) x10^3/uL RBC 4.28 (4.20-5.40) 10^6/uL Hgb 12.8 (12.0-16.0) g/dL Hct 39.2 (37.0-47.0) % MCV 91.6 (81.0-99.0) fL MCH 29.9 (27.0-31.0) pg MCHC 32.6 (32.0-36.0) g/dL RDW 14.2 (12.0-15.0) % Plt Count 153 (130-450) 10^3/uL MPV 8.2 (7.9-10.8) fL Neut # 5.4 (1.5-6.6) 10^3/uL Lymph # 0.4 L (1.5-3.5) 10^3/uL [place] # 0.8 (0.0-1.0) 10^3/uL Eos # 0.0 (0.0-0.7) 10^3/uL Baso # 0.0 (0.0-0.1) 10^3/uL Absolute Nucleated RBC 0.00 x10^3/uL Nucleated RBCs 0.0 /100WBC Sodium (135-145) mmol/L Potassium (3.5-5.0) mmol/L Chloride (101-111) mmol/L Carbon Dioxide (21-32) mmol/L Anion Gap (6-13) BUN (6-20) mg/dL Creatinine (0.4-1.0) mg/dL Estimated GFR (MDRD) (>89) Glucose (70-100) mg/dL POC Whole Bld Glucose 135 H 162 H (70 - 100) mg/dL Calcium (8.5-10.3) mg/dL Magnesium (1.7-2.8) mg/dL Total Bilirubin (0.2-1.0) mg/dL AST (10-42) IU/L ALT (10-60) IU/L Alkaline Phosphatase (42-121) IU/L Total Protein (6.7-8.2) g/dL Albumin (3.2-5.5) g/dL Globulin (2.1-4.2) g/dL Albumin/Globulin Ratio (1.0-2.2) Assessment/Plan - Problem List (1) Small bowel obstruction Impression: status post one day after surgery, follow up surgeon, keep NG tube, antibiotics , IVF, pain control. (2) Type 2 diabetes mellitus Impression: stable, good control, NPO, hypoglycemia protocol Qualifiers: Proliferative retinopathy type: stable Diabetes mellitus long-term insulin use: without long-term use (3) FELIX (acute kidney injury) Impression: stable, IVF, daily check CMP (4) Hypertension Impression: stable, closely monitor Qualifiers: Hypertension type: essential hypertension Qualified Code(s): I10 - Essential (primary) hypertension (5) Hypercalcemia Impression: resolved, closely monitor (6) Schizoaffective disorder Impression: pt pulled out her NG tube, agitated. After discuss with pt, pt seems calm down, and agree to have NG tube. NG tube is re-inserted. Qualifiers: Schizoaffective disorder type: bipolar Qualified Code(s): F25.0 - Schizoaffective disorder, bipolar type
[2017-06-08] MEDS: QUEtiapine 100 MG TABLET PO SCH (17:28)
[2017-06-08] MEDS ORDERED: HALOPERIDOL 5 MG/ML VIAL IVP ONE (21:03)
[2017-06-08] MEDS ORDERED: MAGNESIUM SULFATE 2 GM in SODIUM CHLORIDE 0.9% 50 ML IV SCH ×2 (21:32→23:00)
[2017-06-09] MEDS: INSULIN REGULAR HUMAN 100 UNIT/1 ML 10 ML MDV SUBQ SCH ×4 (00:42→19:09)
[2017-06-09] MEDS ORDERED: HALOPERIDOL 5 MG/ML VIAL IVP PRN (00:48)
[2017-06-09] MEDS: LORazepam 2 MG/ML SYRINGE IVP PRN ×2 (01:14→06:41)
[2017-06-09] MEDS ORDERED: MAGNESIUM SULFATE 2 GM in SODIUM CHLORIDE 0.9% 50 ML IV SCH (03:30)
[2017-06-09] MEDS ORDERED: MAGNESIUM SULFATE 2 GRAM 50 ML IV ONE (04:00)
[2017-06-09] MEDS: ACETAMINOPHEN 1,000 MG/100 ML 100 ML IV SCH ×4 (05:26→21:09)
[2017-06-09] MEDS: SODIUM CHLORIDE 0.9% 1,000 ML IV SCH ×3 (06:53→15:54)
[2017-06-09] MEDS: cefOXitin 1 GM in SODIUM CHLORIDE 0.9% MINIBAG 100 ML IV SCH ×3 (06:54→21:09)
[2017-06-09] MEDS: SODIUM CHLORIDE FLUSH 0.9% 10 ML SYRINGE IVP SCH ×3 (06:56→21:10)
[2017-06-09] MEDS ORDERED: MAGNESIUM SULFATE 1 GM in SODIUM CHLORIDE 0.9% 50 ML IV ONE (07:55)
[2017-06-09] MEDS: ATORVASTATIN 10 MG TABLET PO SCH (08:36)
[2017-06-09] MEDS: hydroCHLOROthiazide 25 MG TABLET PO SCH (08:37)
[2017-06-09] MEDS: lamoTRIgine 100 MG TABLET PO SCH ×2 (08:37→20:22)
[2017-06-09] MEDS: LOSARTAN 50 MG TABLET PO SCH (08:37)
[2017-06-09] MEDS: HYDROmorphone 1 MG/ML SYRINGE IVP PRN ×4 (08:59→20:23)
[2017-06-09] MEDS: FAMOTIDINE 20 MG/50 ML 50 ML IV SCH (10:20)
[2017-06-09 15:18] LABS: BASOPHILS % (AUTO) 0.2 %; EOSINOPHILS # (AUTO) 0.3 10^3/uL (0.0-0.7); EOSINOPHILS % (AUTO) 5.3 %; HCT - HEMATOCRIT 38.4 % (37.0-47.0); HGB - HEMOGLOBIN 12.6 g/dL (12.0-16.0); LYMPHOCYTES # (AUTO) 0.9 10^3/uL (1.5-3.5); LYMPHOCYTES % (AUTO) 14.8 %; MEAN CORPUSCULAR HEMOGLOBIN 29.8 pg (27.0-31.0); MEAN CORPUSCULAR HGB CONC 32.9 g/dL (32.0-36.0); MEAN CORPUSCULAR VOLUME 90.4 fL (81.0-99.0); MEAN PLATELET VOLUME 7.5 fL (7.9-10.8); MONOCYTES # (AUTO) 0.8 10^3/uL (0.0-1.0); MONOCYTES % (AUTO) 12.8 %; NEUTROPHILS # (AUTO) 3.9 10^3/uL (1.5-6.6); NEUTROPHILS % (AUTO) 66.9 %; NUCLEATED RED BLOOD CELLS AUTO 0.1 /100WBC; RED BLOOD COUNT 4.24 10^6/uL (4.20-5.40); RED CELL DISTRIBUTION WIDTH 14.7 % (12.0-15.0); UNCORRECTED WHITE BLOOD COUNT 5.9 x10^3/uL; WHITE BLOOD COUNT 5.9 x10^3/uL (4.8-10.8)
[2017-06-09 15:24] LABS: CALCIUM 8.6 mg/dL (8.5-10.3); CREATININE 1.2 mg/dL (0.4-1.0); POTASSIUM 3.9 mmol/L (3.5-5.0)
[2017-06-09] MEDS: glyBURIDE 2.5 MG TABLET PO SCH (16:01)
--- NOTE | 2017-06-09 18:25 | PROVIDER PROGRESS NOTE ---
Subjective - General Admit Date: 06/04/17 Procedure Date: 06/07/17 Post Op Days: 3 Procedure Performed: ex lap, SBR, ROSARIO - Review of Systems Wound/Incisions: positive: Dressing dry and intact General: positive: Other (somewhat disoriented from pain medications) Pulmonary: positive: No symptoms Cardiovascular: positive: No symptoms Gastrointestinal: positive: Abdominal pain (improved but still present), Other ( no flatus). negative: Nausea Psychiatric: positive: Mood lability - Other Other Information/Narrative: patient removed her own NGT overnight. It was replaced today and she removed it again. She denies nausea. Objective - Patient Data Vital Signs: Vital Signs x48h Temp Pulse Resp BP Pulse Ox 06/09/17 16:25 36.9 C 85 16 116/63 98 06/09/17 12:32 36.3 C L 93 16 123/79 96 Intake & Output: Intake and Output Totals x24h 06/07/17 06/08/17 06/09/17 23:59 23:59 23:59 Intake Total 2427 2962 1985 Output Total 475 3600 Balance 1952 -638 1985 - Lab Results Lab Results: 06/10/17 06:46 06/10/17 06:46 Other Lab Results: Lab Results x24hrs 06/09/17 06/09/17 06/09/17 Range/Units 18:02 15:11 15:11 WBC 5.9 (4.8-10.8) x10^3/uL RBC 4.24 (4.20-5.40) 10^6/uL Hgb 12.6 (12.0-16.0) g/dL Hct 38.4 (37.0-47.0) % MCV 90.4 (81.0-99.0) fL MCH 29.8 (27.0-31.0) pg MCHC 32.9 (32.0-36.0) g/dL RDW 14.7 (12.0-15.0) % Plt Count 217 (130-450) 10^3/uL MPV 7.5 L (7.9-10.8) fL Neut # 3.9 (1.5-6.6) 10^3/uL Lymph # 0.9 L (1.5-3.5) 10^3/uL [place] # 0.8 (0.0-1.0) 10^3/uL Eos # 0.3 (0.0-0.7) 10^3/uL Baso # 0.0 (0.0-0.1) 10^3/uL Absolute Nucleated RBC 0.00 x10^3/uL Nucleated RBCs 0.1 /100WBC Sodium 141 (135-145) mmol/L Potassium 3.9 (3.5-5.0) mmol/L Chloride 111 (101-111) mmol/L Carbon Dioxide 21 (21-32) mmol/L Anion Gap 9.0 (6-13) BUN 21 H (6-20) mg/dL Creatinine 1.2 H (0.4-1.0) mg/dL Estimated GFR (MDRD) 46 L (>89) Glucose 171 H (70-100) mg/dL POC Whole Bld Glucose 162 H (70 - 100) mg/dL Calcium 8.6 (8.5-10.3) mg/dL 06/09/17 06/09/17 06/08/17 Range/Units 12:39 06:17 23:36 WBC (4.8-10.8) x10^3/uL RBC (4.20-5.40) 10^6/uL Hgb (12.0-16.0) g/dL Hct (37.0-47.0) % MCV (81.0-99.0) fL MCH (27.0-31.0) pg MCHC (32.0-36.0) g/dL RDW (12.0-15.0) % Plt Count (130-450) 10^3/uL MPV (7.9-10.8) fL Neut # (1.5-6.6) 10^3/uL Lymph # (1.5-3.5) 10^3/uL [place] # (0.0-1.0) 10^3/uL Eos # (0.0-0.7) 10^3/uL Baso # (0.0-0.1) 10^3/uL Absolute Nucleated RBC x10^3/uL Nucleated RBCs /100WBC Sodium (135-145) mmol/L Potassium (3.5-5.0) mmol/L Chloride (101-111) mmol/L Carbon Dioxide (21-32) mmol/L Anion Gap (6-13) BUN (6-20) mg/dL Creatinine (0.4-1.0) mg/dL Estimated GFR (MDRD) (>89) Glucose (70-100) mg/dL POC Whole Bld Glucose 166 H 165 H 178 H (70 - 100) mg/dL Calcium (8.5-10.3) mg/dL - Current Medications Current Medications: Current Medications Generic Name Dose Route Start Last Admin Trade Name Freq PRN Reason Stop Dose Admin Acetaminophen 650 mg 06/04/17 21:40 06/09/17 08:38 Tylenol PO 650 mg Q4HR PRN Administration Pain 1 to 4 Atorvastatin Calcium 20 mg 06/05/17 09:00 06/09/17 08:36 Lipitor PO 20 mg DAILY EZIO Administration Glyburide 5 mg 06/09/17 17:00 06/09/17 16:01 Diabeta PO 5 mg BIDWM EZIO Administration Hydrochlorothiazide 25 mg 06/05/17 09:00 06/09/17 08:37 Hydrodiuril PO 25 mg DAILY EZIO Administration Hydromorphone HCl 1 mg 06/07/17 15:08 06/09/17 15:07 Dilaudid Inj IVP 1 mg Q2HR PRN Administration PAIN Hydromorphone HCl 2 mg 06/07/17 15:09 06/08/17 15:28 Dilaudid Inj IVP 2 mg Q2HR PRN Administration Pain 8 to 10 Sodium Chloride 1,000 mls @ 150 mls/hr 06/04/17 22:00 06/09/17 15:54 Normal Saline 0.9% IV 150 mls/hr .Q6H40M EZIO Administration Famotidine 50 mls @ 100 mls/hr 06/05/17 09:00 06/09/17 10:20 Pepcid 20 Mg/50 Ml IV 100 mls/hr DAILY EZIO Administration Cefoxitin Sodium 1 gm/ Sodium 100 mls @ 200 mls/hr 06/07/17 16:00 06/09/17 13: 49 Chloride IV 200 mls/hr TID EZIO Administration Acetaminophen 100 mls @ 400 mls/hr 06/07/17 16:00 06/09/17 15:53 Ofirmev IV 400 mls/hr Q6H EZIO Administration Insulin Human Regular 1 - 5 unit 06/05/17 00:00 06/09/17 12:58 Novolin R SUBQ 1 unit Q6HR EZIO Administration Protocol Lamotrigine 100 mg 06/05/17 09:00 06/09/17 08:37 Lamictal PO 100 mg BID EZIO Administration Lorazepam 1 mg 06/09/17 01:02 06/09/17 06:41 Ativan Inj IVP 1 mg Q2HR PRN Administration Anxiety Losartan Potassium 25 mg 06/05/17 09:00 06/09/17 08:37 Cozaar PO 100 mg DAILY EZIO Administration Ondansetron HCl 4 mg 06/04/17 21:40 06/08/17 06:31 Zofran Inj IVP 4 mg Q6HR PRN Administration Nausea / Vomiting Prochlorperazine Edisylate 10 mg 06/04/17 21:40 06/07/17 09:49 Compazine Inj IVP 10 mg Q6HR PRN Administration Nausea / Vomiting Promethazine HCl 25 mg 06/04/17 21:40 06/06/17 16:17 Phenergan Inj IM 25 mg Q6HR PRN Administration Nausea / Vomiting Quetiapine Fumarate 200 mg 06/04/17 23:00 06/08/17 17:28 Seroquel PO 200 mg QPM EZIO Administration Sodium Chloride 10 ml 06/04/17 21:40 06/07/17 09:48 Normal Saline Flush 0.9% IVP 10 ml PRN PRN Administration NEEDED PER PROVIDER ORDERS Sodium Chloride 10 ml 06/04/17 22:00 06/09/17 13:36 Normal Saline Flush 0.9% IVP Not Given Q8HR EZIO - Physical Exam Wound/Incisions: positive: Healing well General Appearance: positive: No acute distress Respiratory: positive: No respiratory distress Cardiovascular: positive: Regular rate & rhythm Abdomen: positive: Other (soft and non-distended. hypoactive bowel sounds.) Extremities: positive: No pedal edema Neurologic/Psychiatric: positive: Oriented x3, Other (depressed affect.) Impression/Plan - Problem List Problem List: s/p SBR for bowel obstruction POD 2 - Had a long discussion with the patient regarding the need for the NGT. She is agreeable to replacement but can not state that she will leave it in place. She is not experiencing nausea. She is ambulating. Will hold off on NGT replacement at this time and will replace if she experiences nausea. - encourage ambulation - await diet until bowel function returns. - home meds have been restarted.
[2017-06-09] MEDS: QUEtiapine 100 MG TABLET PO SCH (20:22)
[2017-06-10] MEDS: SODIUM CHLORIDE 0.9% 1,000 ML IV SCH ×4 (00:05→15:07)
[2017-06-10] MEDS: HYDROmorphone 1 MG/ML SYRINGE IVP PRN ×9 (00:47→21:39)
[2017-06-10] MEDS: cefOXitin 1 GM in SODIUM CHLORIDE 0.9% MINIBAG 100 ML IV SCH ×3 (06:34→21:39)
[2017-06-10] MEDS: INSULIN REGULAR HUMAN 100 UNIT/1 ML 10 ML MDV SUBQ SCH ×4 (06:50→18:28)
[2017-06-10] MEDS: SODIUM CHLORIDE FLUSH 0.9% 10 ML SYRINGE IVP SCH ×3 (06:51→21:46)
[2017-06-10 06:59] LABS: HCT - HEMATOCRIT 36.7 % (37.0-47.0); HGB - HEMOGLOBIN 12.2 g/dL (12.0-16.0); MEAN CORPUSCULAR HEMOGLOBIN 30.3 pg (27.0-31.0); MEAN CORPUSCULAR HGB CONC 33.1 g/dL (32.0-36.0); MEAN CORPUSCULAR VOLUME 91.4 fL (81.0-99.0); MEAN PLATELET VOLUME 7.4 fL (7.9-10.8); RED BLOOD COUNT 4.02 10^6/uL (4.20-5.40); RED CELL DISTRIBUTION WIDTH 14.9 % (12.0-15.0); WHITE BLOOD COUNT 5.1 x10^3/uL (4.8-10.8)
[2017-06-10 07:05] LABS: CALCIUM 8.4 mg/dL (8.5-10.3); CREATININE 0.9 mg/dL (0.4-1.0); POTASSIUM 3.8 mmol/L (3.5-5.0)
--- NOTE | 2017-06-10 07:08 | PROVIDER PROGRESS NOTE ---
Subjective - Subjective Pt reports feeling: Improved Subjective: pt report she had gas passed, feel pain is much reduced, pt is oriented and mood is stable. Objective - Vital Signs/Intake & Output Vital Signs: Vital Signs x48h Temp Pulse Resp BP Pulse Ox 06/10/17 01:21 36.5 C 91 17 136/70 H 96 Intake & Output: Intake & Output 06/07/17 06/08/17 06/09/17 06/10/17 23:59 23:59 23:59 23:59 Intake Total 2427 2962 3389 3720 Output Total 475 3600 Balance 1952 -638 3389 3720 - Objective General Appearance: positive: No acute distress, Alert. negative: Anxious, Lethargic Eyes Bilateral: positive: Normal inspection, PERRL. negative: No lid inflammation, Conjunctivae nml ENT: positive: ENT inspection nml, Pharynx nml. negative: No signs of dehydration, Purulent nasal drainage, Pharyngeal erythema Neck: positive: Nml inspection, Thyroid nml, Trachea midline. negative: Lymphadenopathy (R), Lymphadenopathy (L), Stiff neck, Swelling/bruising, Tracheal deviation Respiratory: positive: Chest non-tender, No respiratory distress, Breath sounds nml. negative: Wheezes, Rales, Rhonchi Cardiovascular: positive: Regular rate & rhythm, No murmur, No gallop. negative : Tachycardia, Bradycardia, Gallop/S4, Friction rub, Decreased pulse(s) Peripheral Pulses: 2+ Radial (R), 2+ Radial (L), 2+ Dorsalis pedis (R), 2+ Dorsalis pedis (L) Abdomen: positive: Non-tender, Nml bowel sounds, No distention. negative: Tenderness, Guarding, Rebound Back: positive: Nml inspection. negative: CVA tenderness (R), CVA tenderness (L ) Skin: positive: Color nml, Warm, Dry. negative: Diaphoresis, Pallor, Decubitus , Puncture wound Extremities: positive: Non-tender, Full ROM, Nml appearance. negative: No pedal edema, Pedal edema, Calf tenderness, Preston's sign/cords Neurologic/Psychiatric: positive: Oriented x3, CN's nml (2-12), Motor nml, Sensation nml, Mood/affect nml. negative: Disoriented to person, Disoriented to place, Disoriented to time, Weakness, Sensory loss, Facial droop, Slurred/ abnml speech, Depressed mood/affect - Lab Results Fish Bones: 06/10/17 06:46 06/10/17 06:46 Other Labs: Lab Results x24hrs 06/10/17 06/10/17 06/10/17 Range/Units 06:47 06:46 06:46 WBC 5.1 (4.8-10.8) x10^3/uL RBC 4.02 L (4.20-5.40) 10^6/uL Hgb 12.2 (12.0-16.0) g/dL Hct 36.7 L (37.0-47.0) % MCV 91.4 (81.0-99.0) fL MCH 30.3 (27.0-31.0) pg MCHC 33.1 (32.0-36.0) g/dL RDW 14.9 (12.0-15.0) % Plt Count 175 (130-450) 10^3/uL MPV 7.4 L (7.9-10.8) fL Neut # (1.5-6.6) 10^3/uL Lymph # (1.5-3.5) 10^3/uL [place] # (0.0-1.0) 10^3/uL Eos # (0.0-0.7) 10^3/uL Baso # (0.0-0.1) 10^3/uL Absolute Nucleated RBC x10^3/uL Nucleated RBCs /100WBC Sodium 142 (135-145) mmol/L Potassium 3.8 (3.5-5.0) mmol/L Chloride 113 H (101-111) mmol/L Carbon Dioxide 19 L (21-32) mmol/L Anion Gap 10.0 (6-13) BUN 16 (6-20) mg/dL Creatinine 0.9 (0.4-1.0) mg/dL Estimated GFR (MDRD) 65 L (>89) Glucose 122 H (70-100) mg/dL POC Whole Bld Glucose 101 H (70 - 100) mg/dL Calcium 8.4 L (8.5-10.3) mg/dL 06/10/17 06/09/17 06/09/17 Range/Units 00:03 18:02 15:11 WBC (4.8-10.8) x10^3/uL RBC (4.20-5.40) 10^6/uL Hgb (12.0-16.0) g/dL Hct (37.0-47.0) % MCV (81.0-99.0) fL MCH (27.0-31.0) pg MCHC (32.0-36.0) g/dL RDW (12.0-15.0) % Plt Count (130-450) 10^3/uL MPV (7.9-10.8) fL Neut # (1.5-6.6) 10^3/uL Lymph # (1.5-3.5) 10^3/uL [place] # (0.0-1.0) 10^3/uL Eos # (0.0-0.7) 10^3/uL Baso # (0.0-0.1) 10^3/uL Absolute Nucleated RBC x10^3/uL Nucleated RBCs /100WBC Sodium 141 (135-145) mmol/L Potassium 3.9 (3.5-5.0) mmol/L Chloride 111 (101-111) mmol/L Carbon Dioxide 21 (21-32) mmol/L Anion Gap 9.0 (6-13) BUN 21 H (6-20) mg/dL Creatinine 1.2 H (0.4-1.0) mg/dL Estimated GFR (MDRD) 46 L (>89) Glucose 171 H (70-100) mg/dL POC Whole Bld Glucose 92 162 H (70 - 100) mg/dL Calcium 8.6 (8.5-10.3) mg/dL 17 06/09/17 Range/Units 15:11 12:39 WBC 5.9 (4.8-10.8) x10^3/uL RBC 4.24 (4.20-5.40) 10^6/uL Hgb 12.6 (12.0-16.0) g/dL Hct 38.4 (37.0-47.0) % MCV 90.4 (81.0-99.0) fL MCH 29.8 (27.0-31.0) pg MCHC 32.9 (32.0-36.0) g/dL RDW 14.7 (12.0-15.0) % Plt Count 217 (130-450) 10^3/uL MPV 7.5 L (7.9-10.8) fL Neut # 3.9 (1.5-6.6) 10^3/uL Lymph # 0.9 L (1.5-3.5) 10^3/uL [place] # 0.8 (0.0-1.0) 10^3/uL Eos # 0.3 (0.0-0.7) 10^3/uL Baso # 0.0 (0.0-0.1) 10^3/uL Absolute Nucleated RBC 0.00 x10^3/uL Nucleated RBCs 0.1 /100WBC Sodium (135-145) mmol/L Potassium (3.5-5.0) mmol/L Chloride (101-111) mmol/L Carbon Dioxide (21-32) mmol/L Anion Gap (6-13) BUN (6-20) mg/dL Creatinine (0.4-1.0) mg/dL Estimated GFR (MDRD) (>89) Glucose (70-100) mg/dL POC Whole Bld Glucose 166 H (70 - 100) mg/dL Calcium (8.5-10.3) mg/dL Assessment/Plan - Problem List (1) Small bowel obstruction Impression: pt's bowel passed gas, start with function. follow up surgeon, (2) Type 2 diabetes mellitus Impression: NPO, on hypoglycemia protocol, hold DM2 medications now, will resume as needed Qualifiers: Proliferative retinopathy type: stable Diabetes mellitus prison insulin use: without long term acute care registered nurse use (3) FELIX (acute kidney injury) Impression: stable,continue hydration (4) Hypertension Impression: stable, continue treatment Qualifiers: Hypertension type: essential hypertension Qualified Code(s): I10 - Essential (primary) hypertension (6) Schizoaffective disorder Impression: stable, continue the treatment, closely monitor Qualifiers: Schizoaffective disorder type: bipolar Qualified Code(s): F25.0 - Schizoaffective disorder, bipolar type
[2017-06-10] MEDS: ACETAMINOPHEN 1,000 MG/100 ML 100 ML IV SCH ×4 (08:09→21:46)
[2017-06-10] MEDS: FAMOTIDINE 20 MG/50 ML 50 ML IV SCH (08:23)
[2017-06-10] MEDS: hydroCHLOROthiazide 25 MG TABLET PO SCH (08:24)
[2017-06-10] MEDS: ATORVASTATIN 10 MG TABLET PO SCH (08:24)
[2017-06-10] MEDS: lamoTRIgine 100 MG TABLET PO SCH ×2 (08:24→21:39)
[2017-06-10] MEDS: LOSARTAN 50 MG TABLET PO SCH (08:25)
[2017-06-10] MEDS: glyBURIDE 2.5 MG TABLET PO SCH ×2 (08:26→18:28)
[2017-06-10] MEDS: QUEtiapine 100 MG TABLET PO SCH (15:56)
--- NOTE | 2017-06-10 17:20 | PROVIDER PROGRESS NOTE ---
Subjective - General Admit Date: 06/04/17 Procedure Date: 06/07/17 Post Op Days: 3 Procedure Performed: ex lap, SBR, ROSARIO - Review of Systems Wound/Incisions: positive: Healing well Drain Type: NGT Drain Output Description: bilious Approximate mls Output: 800 cc/12 hrs General: positive: Other (somewhat disoriented from pain medications) Pulmonary: positive: No symptoms Cardiovascular: positive: No symptoms Gastrointestinal: positive: Abdominal pain (improved but still present), Other ( has flatus). negative: Nausea Psychiatric: positive: Mood lability Objective - Patient Data Vital Signs: Vital Signs x48h Temp Pulse Resp BP Pulse Ox 06/10/17 15:28 37.5 C 99 18 147/90 H 97 Intake & Output: Intake and Output Totals x24h 06/08/17 06/09/17 06/10/17 23:59 23:59 23:59 Intake Total 2962 3389 5145 Output Total 3600 Balance -638 3389 5145 - Lab Results Lab Results: 06/10/17 06:46 06/10/17 06:46 Other Lab Results: Lab Results x24hrs 06/10/17 06/10/17 06/10/17 Range/Units 11:39 06:47 06:46 WBC (4.8-10.8) x10^3/uL RBC (4.20-5.40) 10^6/uL Hgb (12.0-16.0) g/dL Hct (37.0-47.0) % MCV (81.0-99.0) fL MCH (27.0-31.0) pg MCHC (32.0-36.0) g/dL RDW (12.0-15.0) % Plt Count (130-450) 10^3/uL MPV (7.9-10.8) fL Sodium 142 (135-145) mmol/L Potassium 3.8 (3.5-5.0) mmol/L Chloride 113 H (101-111) mmol/L Carbon Dioxide 19 L (21-32) mmol/L Anion Gap 10.0 (6-13) BUN 16 (6-20) mg/dL Creatinine 0.9 (0.4-1.0) mg/dL Estimated GFR (MDRD) 65 L (>89) Glucose 122 H (70-100) mg/dL POC Whole Bld Glucose 95 101 H (70 - 100) mg/dL Calcium 8.4 L (8.5-10.3) mg/dL 06/10/17 06/10/17 06/09/17 Range/Units 06:46 00:03 18:02 WBC 5.1 (4.8-10.8) x10^3/uL RBC 4.02 L (4.20-5.40) 10^6/uL Hgb 12.2 (12.0-16.0) g/dL Hct 36.7 L (37.0-47.0) % MCV 91.4 (81.0-99.0) fL MCH 30.3 (27.0-31.0) pg MCHC 33.1 (32.0-36.0) g/dL RDW 14.9 (12.0-15.0) % Plt Count 175 (130-450) 10^3/uL MPV 7.4 L (7.9-10.8) fL Sodium (135-145) mmol/L Potassium (3.5-5.0) mmol/L Chloride (101-111) mmol/L Carbon Dioxide (21-32) mmol/L Anion Gap (6-13) BUN (6-20) mg/dL Creatinine (0.4-1.0) mg/dL Estimated GFR (MDRD) (>89) Glucose (70-100) mg/dL POC Whole Bld Glucose 92 162 H (70 - 100) mg/dL Calcium (8.5-10.3) mg/dL - Current Medications Current Medications: Current Medications Generic Name Dose Route Start Last Admin Trade Name Freq PRN Reason Stop Dose Admin Acetaminophen 650 mg 06/04/17 21:40 06/09/17 08:38 Tylenol PO 650 mg Q4HR PRN Administration Pain 1 to 4 Atorvastatin Calcium 20 mg 06/05/17 09:00 06/10/17 08:24 Lipitor PO 20 mg DAILY EZIO Administration Glyburide 5 mg 06/09/17 17:00 06/10/17 08:26 Diabeta PO 5 mg BIDWM EZIO Administration Hydrochlorothiazide 25 mg 06/05/17 09:00 06/10/17 08:24 Hydrodiuril PO 25 mg DAILY EZIO Administration Hydromorphone HCl 1 mg 06/07/17 15:08 06/10/17 15:07 Dilaudid Inj IVP 1 mg Q2HR PRN Administration PAIN Hydromorphone HCl 2 mg 06/07/17 15:09 06/10/17 00:47 Dilaudid Inj IVP 2 mg Q2HR PRN Administration Pain 8 to 10 Sodium Chloride 1,000 mls @ 150 mls/hr 06/04/17 22:00 06/10/17 15:07 Normal Saline 0.9% IV 150 mls/hr .Q6H40M EZIO Administration Famotidine 50 mls @ 100 mls/hr 06/05/17 09:00 06/10/17 08:23 Pepcid 20 Mg/50 Ml IV 100 mls/hr DAILY EZIO Administration Cefoxitin Sodium 1 gm/ Sodium 100 mls @ 200 mls/hr 06/07/17 16:00 06/10/17 13: 16 Chloride IV 200 mls/hr TID EZIO Administration Acetaminophen 100 mls @ 400 mls/hr 06/07/17 16:00 06/10/17 15:56 Ofirmev IV 400 mls/hr Q6H EZIO Administration Insulin Human Regular 1 - 5 unit 06/05/17 00:00 06/10/17 11:47 Novolin R SUBQ Not Given Q6HR EZIO Protocol Lamotrigine 100 mg 06/05/17 09:00 06/10/17 08:24 Lamictal PO 100 mg BID EZIO Administration Lorazepam 1 mg 06/09/17 01:02 06/09/17 06:41 Ativan Inj IVP 1 mg Q2HR PRN Administration Anxiety Losartan Potassium 25 mg 06/05/17 09:00 06/10/17 08:25 Cozaar PO 25 mg DAILY EZIO Administration Ondansetron HCl 4 mg 06/04/17 21:40 06/08/17 06:31 Zofran Inj IVP 4 mg Q6HR PRN Administration Nausea / Vomiting Prochlorperazine Edisylate 10 mg 06/04/17 21:40 06/07/17 09:49 Compazine Inj IVP 10 mg Q6HR PRN Administration Nausea / Vomiting Promethazine HCl 25 mg 06/04/17 21:40 06/06/17 16:17 Phenergan Inj IM 25 mg Q6HR PRN Administration Nausea / Vomiting Quetiapine Fumarate 200 mg 06/10/17 16:00 06/10/17 15:56 Seroquel PO 200 mg DAILY@1600 EZIO Administration Sodium Chloride 10 ml 06/04/17 21:40 06/07/17 09:48 Normal Saline Flush 0.9% IVP 10 ml PRN PRN Administration NEEDED PER PROVIDER ORDERS Sodium Chloride 10 ml 06/04/17 22:00 06/10/17 13:15 Normal Saline Flush 0.9% IVP Not Given Q8HR EZIO - Physical Exam Wound/Incisions: positive: Healing well, Other (no evidence of infection slight bruising) Impression/Plan - Problem List Problem List: s/p LOS, partial small bowel resection X2 pod #3. Patient started to have bowel function. Start liquids. Ambulate. IS use.
[2017-06-10] MEDS ORDERED: DEXTROSE 50% ABBOJECT 25 GM/50 ML SYRINGE IVP SCH (19:00)
[2017-06-10] MEDS: LORazepam 2 MG/ML SYRINGE IVP PRN (21:39)
[2017-06-11] MEDS: SODIUM CHLORIDE 0.9% 1,000 ML IV SCH ×2 (00:04→08:04)
[2017-06-11] MEDS: LORazepam 2 MG/ML SYRINGE IVP PRN ×3 (02:45→15:12)
[2017-06-11] MEDS: INSULIN REGULAR HUMAN 100 UNIT/1 ML 10 ML MDV SUBQ SCH ×3 (02:56→11:36)
[2017-06-11] MEDS: ACETAMINOPHEN 1,000 MG/100 ML 100 ML IV SCH (03:55)
[2017-06-11] MEDS: cefOXitin 1 GM in SODIUM CHLORIDE 0.9% MINIBAG 100 ML IV SCH ×3 (05:31→21:55)
[2017-06-11] MEDS: SODIUM CHLORIDE FLUSH 0.9% 10 ML SYRINGE IVP SCH ×3 (05:40→21:24)
[2017-06-11] MEDS: HYDROmorphone 1 MG/ML SYRINGE IVP PRN (07:53)
[2017-06-11] MEDS: FAMOTIDINE 20 MG/50 ML 50 ML IV SCH (09:00)
[2017-06-11 11:13] LABS: BASOPHILS % (AUTO) 0.4 %; EOSINOPHILS # (AUTO) 0.5 10^3/uL (0.0-0.7); EOSINOPHILS % (AUTO) 8.9 %; HCT - HEMATOCRIT 33.2 % (37.0-47.0); HGB - HEMOGLOBIN 11.2 g/dL (12.0-16.0); LYMPHOCYTES # (AUTO) 1.2 10^3/uL (1.5-3.5); LYMPHOCYTES % (AUTO) 19.2 %; MEAN CORPUSCULAR HEMOGLOBIN 29.6 pg (27.0-31.0); MEAN CORPUSCULAR HGB CONC 33.7 g/dL (32.0-36.0); MEAN CORPUSCULAR VOLUME 87.8 fL (81.0-99.0); MONOCYTES # (AUTO) 0.6 10^3/uL (0.0-1.0); MONOCYTES % (AUTO) 10.4 %; NEUTROPHILS # (AUTO) 3.8 10^3/uL (1.5-6.6); NEUTROPHILS % (AUTO) 61.1 %; RED BLOOD COUNT 3.78 10^6/uL (4.20-5.40); RED CELL DISTRIBUTION WIDTH 14.6 % (12.0-15.0); UNCORRECTED WHITE BLOOD COUNT 6.2 x10^3/uL; WHITE BLOOD COUNT 6.2 x10^3/uL (4.8-10.8)
[2017-06-11 11:24] LABS: BILIRUBIN,TOTAL 0.9 mg/dL (0.2-1.0); CALCIUM 7.8 mg/dL (8.5-10.3); CREATININE 0.8 mg/dL (0.4-1.0); MAGNESIUM 1.4 mg/dL (1.7-2.8); POTASSIUM 3.2 mmol/L (3.5-5.0); TOTAL PROTEIN 4.9 g/dL (6.7-8.2)
[2017-06-11] MEDS: ATORVASTATIN 10 MG TABLET PO SCH (11:34)
[2017-06-11] MEDS: lamoTRIgine 100 MG TABLET PO SCH ×2 (11:35→17:38)
[2017-06-11] MEDS: LOSARTAN 50 MG TABLET PO SCH (11:35)
[2017-06-11] MEDS: hydroCHLOROthiazide 25 MG TABLET PO SCH (11:35)
[2017-06-11] MEDS: ENOXAPARIN 40 MG/0.4 ML SYRINGE SUBQ SCH (11:36)
[2017-06-11] MEDS ORDERED: lamoTRIgine 100 MG TABLET PO SCH ×2 (14:00→16:00)
[2017-06-11] MEDS ORDERED: QUEtiapine 100 MG TABLET PO SCH (14:00)
--- NOTE | 2017-06-11 16:26 | PROVIDER PROGRESS NOTE ---
Subjective - Subjective Pt reports feeling: No change Subjective: pt's mood is stable, no other complaint. I called pt's psychiatrist Dr. Breanna Love, and consult about pt's home mood stabilization medications. Then I called pharmacy in here, to reconciliation of her medication. Objective - Vital Signs/Intake & Output Vital Signs: Vital Signs x48h Temp Pulse Resp BP Pulse Ox 06/11/17 09:46 36.9 C 90 18 134/63 H 95 Intake & Output: Intake & Output 06/08/17 06/09/17 06/10/17 06/11/17 23:59 23:59 23:59 23:59 Intake Total 2962 3389 5145 3169 Output Total 3600 Balance -638 3389 5145 3169 - Objective General Appearance: positive: No acute distress, Alert. negative: Lethargic Eyes Bilateral: positive: Normal inspection, PERRL. negative: No lid inflammation, Conjunctivae nml ENT: positive: ENT inspection nml, Pharynx nml. negative: Purulent nasal drainage, Pharyngeal erythema Neck: positive: Nml inspection, Thyroid nml, Trachea midline. negative: Lymphadenopathy (R), Lymphadenopathy (L), Stiff neck, Carotid bruit Respiratory: positive: Chest non-tender, No respiratory distress, Breath sounds nml. negative: Wheezes, Rales, Rhonchi Cardiovascular: positive: Regular rate & rhythm, No murmur, No gallop. negative : Bradycardia, JVD present, Systolic murmur, Friction rub Peripheral Pulses: 2+ Radial (R), 2+ Radial (L), 2+ Dorsalis pedis (R), 2+ Dorsalis pedis (L) Abdomen: positive: Non-tender, No distention. negative: Tenderness, Guarding, Rebound Back: positive: Nml inspection. negative: CVA tenderness (R), CVA tenderness (L ) Skin: positive: Color nml, Warm, Dry. negative: Cyanosis, Diaphoresis Extremities: positive: Non-tender Neurologic/Psychiatric: positive: Oriented x3, CN's nml (2-12), Motor nml, Sensation nml, Mood/affect nml. negative: Disoriented to person, Disoriented to place, Disoriented to time, Weakness, Sensory loss, Facial droop, Slurred/ abnml speech, Depressed mood/affect - Lab Results Fish Bones: 06/11/17 11:00 06/11/17 11:00 Other Labs: Lab Results x24hrs 06/11/17 06/11/17 06/11/17 Range/Units 11:27 11:00 11:00 WBC 6.2 (4.8-10.8) x10^3/uL RBC 3.78 L (4.20-5.40) 10^6/uL Hgb 11.2 L (12.0-16.0) g/dL Hct 33.2 L (37.0-47.0) % MCV 87.8 (81.0-99.0) fL MCH 29.6 (27.0-31.0) pg MCHC 33.7 (32.0-36.0) g/dL RDW 14.6 (12.0-15.0) % Plt Count 196 (130-450) 10^3/uL MPV 7.0 L (7.9-10.8) fL Neut # 3.8 (1.5-6.6) 10^3/uL Lymph # 1.2 L (1.5-3.5) 10^3/uL [place] # 0.6 (0.0-1.0) 10^3/uL Eos # 0.5 (0.0-0.7) 10^3/uL Baso # 0.0 (0.0-0.1) 10^3/uL Absolute Nucleated RBC 0.00 x10^3/uL Nucleated RBCs 0.0 /100WBC Sodium 141 (135-145) mmol/L Potassium 3.2 L (3.5-5.0) mmol/L Chloride 109 (101-111) mmol/L Carbon Dioxide 25 (21-32) mmol/L Anion Gap 7.0 (6-13) BUN 7 (6-20) mg/dL Creatinine 0.8 (0.4-1.0) mg/dL Estimated GFR (MDRD) 74 L (>89) Glucose 145 H (70-100) mg/dL POC Whole Bld Glucose 131 H (70 - 100) mg/dL Calcium 7.8 L (8.5-10.3) mg/dL Magnesium 1.4 L (1.7-2.8) mg/dL Total Bilirubin 0.9 (0.2-1.0) mg/dL AST 27 (10-42) IU/L ALT 21 (10-60) IU/L Alkaline Phosphatase 34 L (42-121) IU/L Total Protein 4.9 L (6.7-8.2) g/dL Albumin 2.4 L (3.2-5.5) g/dL Globulin 2.5 (2.1-4.2) g/dL Albumin/Globulin Ratio 1.0 (1.0-2.2) 06/11/17 06/11/17 06/11/17 Range/Units 05:43 00:52 00:04 WBC (4.8-10.8) x10^3/uL RBC (4.20-5.40) 10^6/uL Hgb (12.0-16.0) g/dL Hct (37.0-47.0) % MCV (81.0-99.0) fL MCH (27.0-31.0) pg MCHC (32.0-36.0) g/dL RDW (12.0-15.0) % Plt Count (130-450) 10^3/uL MPV (7.9-10.8) fL Neut # (1.5-6.6) 10^3/uL Lymph # (1.5-3.5) 10^3/uL [place] # (0.0-1.0) 10^3/uL Eos # (0.0-0.7) 10^3/uL Baso # (0.0-0.1) 10^3/uL Absolute Nucleated RBC x10^3/uL Nucleated RBCs /100WBC Sodium (135-145) mmol/L Potassium (3.5-5.0) mmol/L Chloride (101-111) mmol/L Carbon Dioxide (21-32) mmol/L Anion Gap (6-13) BUN (6-20) mg/dL Creatinine (0.4-1.0) mg/dL Estimated GFR (MDRD) (>89) Glucose (70-100) mg/dL POC Whole Bld Glucose 123 H 93 68 L (70 - 100) mg/dL Calcium (8.5-10.3) mg/dL Magnesium (1.7-2.8) mg/dL Total Bilirubin (0.2-1.0) mg/dL AST (10-42) IU/L ALT (10-60) IU/L Alkaline Phosphatase (42-121) IU/L Total Protein (6.7-8.2) g/dL Albumin (3.2-5.5) g/dL Globulin (2.1-4.2) g/dL Albumin/Globulin Ratio (1.0-2.2) 06/10/17 06/10/17 Range/Units 21:32 18:03 WBC (4.8-10.8) x10^3/uL RBC (4.20-5.40) 10^6/uL Hgb (12.0-16.0) g/dL Hct (37.0-47.0) % MCV (81.0-99.0) fL MCH (27.0-31.0) pg MCHC (32.0-36.0) g/dL RDW (12.0-15.0) % Plt Count (130-450) 10^3/uL MPV (7.9-10.8) fL Neut # (1.5-6.6) 10^3/uL Lymph # (1.5-3.5) 10^3/uL [place] # (0.0-1.0) 10^3/uL Eos # (0.0-0.7) 10^3/uL Baso # (0.0-0.1) 10^3/uL Absolute Nucleated RBC x10^3/uL Nucleated RBCs /100WBC Sodium (135-145) mmol/L Potassium (3.5-5.0) mmol/L Chloride (101-111) mmol/L Carbon Dioxide (21-32) mmol/L Anion Gap (6-13) BUN (6-20) mg/dL Creatinine (0.4-1.0) mg/dL Estimated GFR (MDRD) (>89) Glucose (70-100) mg/dL POC Whole Bld Glucose 80 69 L (70 - 100) mg/dL Calcium (8.5-10.3) mg/dL Magnesium (1.7-2.8) mg/dL Total Bilirubin (0.2-1.0) mg/dL AST (10-42) IU/L ALT (10-60) IU/L Alkaline Phosphatase (42-121) IU/L Total Protein (6.7-8.2) g/dL Albumin (3.2-5.5) g/dL Globulin (2.1-4.2) g/dL Albumin/Globulin Ratio (1.0-2.2) Assessment/Plan - Problem List (1) Small bowel obstruction Impression: pt is on clear diet, denies pain on abdomen. follow up surgeon. closely monitor , continue treatment. (2) Type 2 diabetes mellitus Impression: stable, continue treatment Qualifiers: Proliferative retinopathy type: stable Diabetes mellitus [facility] insulin use: without [facility] use (4) Hypertension Qualifiers: Hypertension type: essential hypertension Qualified Code(s): I10 - Essential (primary) hypertension (6) Schizoaffective disorder Impression: call pt's psychiatriat for consulting for mood stable, reconciliation of home meds Qualifiers: Schizoaffective disorder type: bipolar Qualified Code(s): F25.0 - Schizoaffective disorder, bipolar type
--- NOTE | 2017-06-11 17:08 | PROVIDER PROGRESS NOTE ---
Subjective - General Admit Date: 06/04/17 Procedure Date: 06/07/17 Post Op Days: 4 Procedure Performed: ex lap, SBR, ROSARIO - Review of Systems Wound/Incisions: positive: Healing well General: positive: Other (somewhat disoriented from pain medications) Pulmonary: positive: No symptoms Cardiovascular: positive: No symptoms Gastrointestinal: positive: Abdominal pain (improved but still present), Flatus , Other (no flatus). negative: Nausea Psychiatric: positive: Mood lability Objective - Patient Data Vital Signs: Vital Signs x48h Temp Pulse Resp BP Pulse Ox 06/11/17 15:23 37.0 C 92 16 148/89 H 96 06/11/17 09:46 36.9 C 90 18 134/63 H 95 Intake & Output: Intake and Output Totals x24h 06/09/17 06/10/17 06/11/17 23:59 23:59 23:59 Intake Total 3389 5145 3169 Balance 3389 5145 3169 - Lab Results Lab Results: 06/11/17 11:00 06/11/17 11:00 Other Lab Results: Lab Results x24hrs 06/11/17 06/11/17 06/11/17 Range/Units 16:36 11:27 11:00 WBC (4.8-10.8) x10^3/uL RBC (4.20-5.40) 10^6/uL Hgb (12.0-16.0) g/dL Hct (37.0-47.0) % MCV (81.0-99.0) fL MCH (27.0-31.0) pg MCHC (32.0-36.0) g/dL RDW (12.0-15.0) % Plt Count (130-450) 10^3/uL MPV (7.9-10.8) fL Neut # (1.5-6.6) 10^3/uL Lymph # (1.5-3.5) 10^3/uL Daniels # (0.0-1.0) 10^3/uL Eos # (0.0-0.7) 10^3/uL Baso # (0.0-0.1) 10^3/uL Absolute Nucleated RBC x10^3/uL Nucleated RBCs /100WBC Sodium 141 (135-145) mmol/L Potassium 3.2 L (3.5-5.0) mmol/L Chloride 109 (101-111) mmol/L Carbon Dioxide 25 (21-32) mmol/L Anion Gap 7.0 (6-13) BUN 7 (6-20) mg/dL Creatinine 0.8 (0.4-1.0) mg/dL Estimated GFR (MDRD) 74 L (>89) Glucose 145 H (70-100) mg/dL POC Whole Bld Glucose 173 H 131 H (70 - 100) mg/dL Calcium 7.8 L (8.5-10.3) mg/dL Magnesium 1.4 L (1.7-2.8) mg/dL Total Bilirubin 0.9 (0.2-1.0) mg/dL AST 27 (10-42) IU/L ALT 21 (10-60) IU/L Alkaline Phosphatase 34 L (42-121) IU/L Total Protein 4.9 L (6.7-8.2) g/dL Albumin 2.4 L (3.2-5.5) g/dL Globulin 2.5 (2.1-4.2) g/dL Albumin/Globulin Ratio 1.0 (1.0-2.2) 06/11/17 06/11/17 06/11/17 Range/Units 11:00 05:43 00:52 WBC 6.2 (4.8-10.8) x10^3/uL RBC 3.78 L (4.20-5.40) 10^6/uL Hgb 11.2 L (12.0-16.0) g/dL Hct 33.2 L (37.0-47.0) % MCV 87.8 (81.0-99.0) fL MCH 29.6 (27.0-31.0) pg MCHC 33.7 (32.0-36.0) g/dL RDW 14.6 (12.0-15.0) % Plt Count 196 (130-450) 10^3/uL MPV 7.0 L (7.9-10.8) fL Neut # 3.8 (1.5-6.6) 10^3/uL Lymph # 1.2 L (1.5-3.5) 10^3/uL Daniels # 0.6 (0.0-1.0) 10^3/uL Eos # 0.5 (0.0-0.7) 10^3/uL Baso # 0.0 (0.0-0.1) 10^3/uL Absolute Nucleated RBC 0.00 x10^3/uL Nucleated RBCs 0.0 /100WBC Sodium (135-145) mmol/L Potassium (3.5-5.0) mmol/L Chloride (101-111) mmol/L Carbon Dioxide (21-32) mmol/L Anion Gap (6-13) BUN (6-20) mg/dL Creatinine (0.4-1.0) mg/dL Estimated GFR (MDRD) (>89) Glucose (70-100) mg/dL POC Whole Bld Glucose 123 H 93 (70 - 100) mg/dL Calcium (8.5-10.3) mg/dL Magnesium (1.7-2.8) mg/dL Total Bilirubin (0.2-1.0) mg/dL AST (10-42) IU/L ALT (10-60) IU/L Alkaline Phosphatase (42-121) IU/L Total Protein (6.7-8.2) g/dL Albumin (3.2-5.5) g/dL Globulin (2.1-4.2) g/dL Albumin/Globulin Ratio (1.0-2.2) 06/11/17 06/10/17 06/10/17 Range/Units 00:04 21:32 18:03 WBC (4.8-10.8) x10^3/uL RBC (4.20-5.40) 10^6/uL Hgb (12.0-16.0) g/dL Hct (37.0-47.0) % MCV (81.0-99.0) fL MCH (27.0-31.0) pg MCHC (32.0-36.0) g/dL RDW (12.0-15.0) % Plt Count (130-450) 10^3/uL MPV (7.9-10.8) fL Neut # (1.5-6.6) 10^3/uL Lymph # (1.5-3.5) 10^3/uL Daniels # (0.0-1.0) 10^3/uL Eos # (0.0-0.7) 10^3/uL Baso # (0.0-0.1) 10^3/uL Absolute Nucleated RBC x10^3/uL Nucleated RBCs /100WBC Sodium (135-145) mmol/L Potassium (3.5-5.0) mmol/L Chloride (101-111) mmol/L Carbon Dioxide (21-32) mmol/L Anion Gap (6-13) BUN (6-20) mg/dL Creatinine (0.4-1.0) mg/dL Estimated GFR (MDRD) (>89) Glucose (70-100) mg/dL POC Whole Bld Glucose 68 L 80 69 L (70 - 100) mg/dL Calcium (8.5-10.3) mg/dL Magnesium (1.7-2.8) mg/dL Total Bilirubin (0.2-1.0) mg/dL AST (10-42) IU/L ALT (10-60) IU/L Alkaline Phosphatase (42-121) IU/L Total Protein (6.7-8.2) g/dL Albumin (3.2-5.5) g/dL Globulin (2.1-4.2) g/dL Albumin/Globulin Ratio (1.0-2.2) - Current Medications Current Medications: Current Medications Generic Name Dose Route Start Last Admin Trade Name Freq PRN Reason Stop Dose Admin Acetaminophen 650 mg 06/04/17 21:40 06/09/17 08:38 Tylenol PO 650 mg Q4HR PRN Administration Pain 1 to 4 Atorvastatin Calcium 20 mg 06/05/17 09:00 06/11/17 11:34 Lipitor PO 20 mg DAILY EZIO Administration Enoxaparin Sodium 40 mg 06/11/17 09:00 06/11/17 11:36 Lovenox SUBQ 40 mg DAILY EZIO Administration Hydrochlorothiazide 25 mg 06/05/17 09:00 06/11/17 11:35 Hydrodiuril PO 25 mg DAILY EZIO Administration Hydromorphone HCl 1 mg 06/07/17 15:08 06/10/17 21:39 Dilaudid Inj IVP 1 mg Q2HR PRN Administration PAIN Hydromorphone HCl 2 mg 06/07/17 15:09 06/11/17 07:53 Dilaudid Inj IVP 2 mg Q2HR PRN Administration Pain 8 to 10 Famotidine 50 mls @ 100 mls/hr 06/05/17 09:00 06/11/17 09:00 Pepcid 20 Mg/50 Ml IV 100 mls/hr DAILY EZIO Administration Cefoxitin Sodium 1 gm/ Sodium 100 mls @ 200 mls/hr 06/07/17 16:00 06/11/17 14: 12 Chloride IV 200 mls/hr TID EZIO Administration Sodium Chloride 1,000 mls @ 50 mls/hr 06/11/17 07:57 06/11/17 08:04 Normal Saline 0.9% IV 50 mls/hr .Q20H EZIO Administration Lamotrigine 100 mg 06/11/17 14:00 06/11/17 14:12 Lamictal PO Not Given 1400 EZIO Lorazepam 1 mg 06/09/17 01:02 06/11/17 15:12 Ativan Inj IVP 1 mg Q2HR PRN Administration Anxiety Losartan Potassium 25 mg 06/05/17 09:00 06/11/17 11:35 Cozaar PO 25 mg DAILY EZIO Administration Ondansetron HCl 4 mg 06/04/17 21:40 06/08/17 06:31 Zofran Inj IVP 4 mg Q6HR PRN Administration Nausea / Vomiting Prochlorperazine Edisylate 10 mg 06/04/17 21:40 06/07/17 09:49 Compazine Inj IVP 10 mg Q6HR PRN Administration Nausea / Vomiting Promethazine HCl 25 mg 06/04/17 21:40 06/06/17 16:17 Phenergan Inj IM 25 mg Q6HR PRN Administration Nausea / Vomiting Quetiapine Fumarate 200 mg 06/10/17 16:00 06/10/17 15:56 Seroquel PO 200 mg DAILY@1600 EZIO Administration Quetiapine Fumarate 100 mg 06/11/17 14:00 06/11/17 14:12 Seroquel PO 100 mg 1400 EZIO Administration Sodium Chloride 10 ml 06/04/17 21:40 06/07/17 09:48 Normal Saline Flush 0.9% IVP 10 ml PRN PRN Administration NEEDED PER PROVIDER ORDERS Sodium Chloride 10 ml 06/04/17 22:00 06/11/17 12:22 Normal Saline Flush 0.9% IVP Not Given Q8HR EZIO - Physical Exam Wound/Incisions: positive: Healing well, Other (minimal bruising) Impression/Plan - Problem List Problem List: 1) s/p ex lap with los and partial small bowel resection x2 POD #4. Some flatus but no bm. No c/o n/v. Tolerating liquids. Mobilize patient. Advance diet in AM. 2) psych issues followed by medicine.
[2017-06-11] MEDS: QUEtiapine 100 MG TABLET PO SCH (17:39)
[2017-06-11] MEDS: INSULIN ASPART 300 UNIT/3 ML PEN SUBQ SCH ×2 (17:39→21:52)
[2017-06-12 05:14] LABS: BASOPHILS % (AUTO) 0.5 %; EOSINOPHILS # (AUTO) 0.4 10^3/uL (0.0-0.7); EOSINOPHILS % (AUTO) 7.6 %; HCT - HEMATOCRIT 33.7 % (37.0-47.0); HGB - HEMOGLOBIN 11.7 g/dL (12.0-16.0); LYMPHOCYTES # (AUTO) 1.2 10^3/uL (1.5-3.5); LYMPHOCYTES % (AUTO) 24.4 %; MEAN CORPUSCULAR HEMOGLOBIN 30.5 pg (27.0-31.0); MEAN CORPUSCULAR HGB CONC 34.7 g/dL (32.0-36.0); MEAN PLATELET VOLUME 6.7 fL (7.9-10.8); MONOCYTES # (AUTO) 0.6 10^3/uL (0.0-1.0); MONOCYTES % (AUTO) 11.9 %; NEUTROPHILS # (AUTO) 2.7 10^3/uL (1.5-6.6); NEUTROPHILS % (AUTO) 55.6 %; RED BLOOD COUNT 3.83 10^6/uL (4.20-5.40); RED CELL DISTRIBUTION WIDTH 14.3 % (12.0-15.0); UNCORRECTED WHITE BLOOD COUNT 4.9 x10^3/uL; WHITE BLOOD COUNT 4.9 x10^3/uL (4.8-10.8)
[2017-06-12 05:26] LABS: ALBUMIN/GLOBULIN RATIO 0.9 (1.0-2.2); BILIRUBIN,TOTAL 0.6 mg/dL (0.2-1.0); CALCIUM 8.2 mg/dL (8.5-10.3); CREATININE 0.7 mg/dL (0.4-1.0); POTASSIUM 2.8 mmol/L (3.5-5.0)
[2017-06-12] MEDS: SODIUM CHLORIDE 0.9% 1,000 ML IV SCH (05:47)
[2017-06-12] MEDS: cefOXitin 1 GM in SODIUM CHLORIDE 0.9% MINIBAG 100 ML IV SCH ×2 (05:47→14:53)
[2017-06-12] MEDS: SODIUM CHLORIDE FLUSH 0.9% 10 ML SYRINGE IVP SCH ×3 (06:35→19:49)
[2017-06-12] MEDS ORDERED: MAGNESIUM SULFATE 1 GM in SODIUM CHLORIDE 0.9% 50 ML IV ONE (07:08)
[2017-06-12] MEDS ORDERED: POTASSIUM CHLOR 10 MEQ/100 ML 100 ML IV ONE ×2 (07:11→07:13)
--- NOTE | 2017-06-12 07:17 | PROVIDER PROGRESS NOTE ---
Assessment/Plan - Problem List (1) Small bowel obstruction Assessment/Plan: sp exploratory lap SBH, ROSARIO on 06/04/17 improving started full liquid to regular diet per surgery likely home tomorrow if tolerating (2) Hypomagnesemia Assessment/Plan: getting mag iv; recheck this pm (3) Hypokalemia Assessment/Plan: getting K rider; recheck this pm (4) Hypertension Qualifiers: Hypertension type: essential hypertension Qualified Code(s): I10 - Essential (primary) hypertension Assessment/Plan: stable; continue same medications ( losartan and HCTZ) (5) Schizoaffective disorder Qualifiers: Schizoaffective disorder type: unspecified Qualified Code(s): F25.9 - Schizoaffective disorder, unspecified Assessment/Plan: continue home medications; stable (6) Type 2 diabetes mellitus Qualifiers: Proliferative retinopathy type: stable Diabetes mellitus termite renewal inspector insulin use: without termite renewal inspector use Assessment/Plan: on insulin; adjust coverage as indicated. - Current Meds Current Meds: Current Medications Generic Name Dose Route Start Last Admin Trade Name Freq PRN Reason Stop Dose Admin Acetaminophen 650 mg 06/04/17 21:40 06/09/17 08:38 Tylenol PO 650 mg Q4HR PRN Administration Pain 1 to 4 Atorvastatin Calcium 20 mg 06/05/17 09:00 06/11/17 11:34 Lipitor PO 20 mg DAILY EZIO Administration Enoxaparin Sodium 40 mg 06/11/17 09:00 06/11/17 11:36 Lovenox SUBQ 40 mg DAILY EZIO Administration Hydrochlorothiazide 25 mg 06/05/17 09:00 06/11/17 11:35 Hydrodiuril PO 25 mg DAILY EZIO Administration Hydromorphone HCl 1 mg 06/07/17 15:08 06/10/17 21:39 Dilaudid Inj IVP 1 mg Q2HR PRN Administration PAIN Hydromorphone HCl 2 mg 06/07/17 15:09 06/11/17 07:53 Dilaudid Inj IVP 2 mg Q2HR PRN Administration Pain 8 to 10 Famotidine 50 mls @ 100 mls/hr 06/05/17 09:00 06/11/17 09:00 Pepcid 20 Mg/50 Ml IV 100 mls/hr DAILY EZIO Administration Cefoxitin Sodium 1 gm/ Sodium 100 mls @ 200 mls/hr 06/07/17 16:00 06/12/17 05: 47 Chloride IV 200 mls/hr TID EZIO Administration Sodium Chloride 1,000 mls @ 50 mls/hr 06/11/17 07:57 06/12/17 05:47 Normal Saline 0.9% IV 50 mls/hr .Q20H EZIO Administration Insulin Aspart 1 - 5 unit 06/11/17 17:00 06/11/17 21:52 Novolog SUBQ 1 unit 0800,1200,1700,2100 EZIO Administration Protocol Lamotrigine 100 mg 06/11/17 14:00 06/11/17 14:12 Lamictal PO Not Given 1400 EZIO Lamotrigine 200 mg 06/11/17 16:00 06/11/17 17:38 Lamictal PO 200 mg 1600 EZIO Administration Lorazepam 1 mg 06/09/17 01:02 06/11/17 15:12 Ativan Inj IVP 1 mg Q2HR PRN Administration Anxiety Losartan Potassium 25 mg 06/05/17 09:00 06/11/17 11:35 Cozaar PO 25 mg DAILY EZIO Administration Ondansetron HCl 4 mg 06/04/17 21:40 06/08/17 06:31 Zofran Inj IVP 4 mg Q6HR PRN Administration Nausea / Vomiting Prochlorperazine Edisylate 10 mg 06/04/17 21:40 06/07/17 09:49 Compazine Inj IVP 10 mg Q6HR PRN Administration Nausea / Vomiting Promethazine HCl 25 mg 06/04/17 21:40 06/06/17 16:17 Phenergan Inj IM 25 mg Q6HR PRN Administration Nausea / Vomiting Quetiapine Fumarate 200 mg 06/10/17 16:00 06/11/17 17:39 Seroquel PO 200 mg DAILY@1600 EZIO Administration Quetiapine Fumarate 100 mg 06/11/17 14:00 06/11/17 14:12 Seroquel PO 100 mg 1400 EZIO Administration Sodium Chloride 10 ml 06/04/17 21:40 06/07/17 09:48 Normal Saline Flush 0.9% IVP 10 ml PRN PRN Administration NEEDED PER PROVIDER ORDERS Sodium Chloride 10 ml 06/04/17 22:00 06/12/17 06:35 Normal Saline Flush 0.9% IVP Not Given Q8HR EZIO - Lab Result Fish Bone Diagrams: 06/12/17 05:10 06/12/17 05:10 - Additional Planning My Orders: My Active Orders 06/12/17 07:08 Magnesium Sulfate 1 gm Sodium Chloride 0.9% [Normal Saline 0.9%] 50 ml IV ONCE 06/12/17 07:11 Potassium Chlor 10 Meq/100 ml [Potassium Chloride] 100 ml IV ONCE 06/12/17 07:13 Potassium Chlor 10 Meq/100 ml [Potassium Chloride] 100 ml IV ONCE 06/12/17 16:00 BMP - BASIC METABOLIC PANEL [CHEM] Timed Consult/Specialty: Surgery (discussed with surgeon today) Plan Discussed with:: Patient Time Spent: 31-60 minutes Subjective - Subjective Patient Reports: Feeling Better Nursing Reports: Other (little bit weak; worried that patient can take care of herself at home) Objective Vital Signs: Vital Signs - 24 hr 06/11/17 06/11/17 06/11/17 09:46 15:23 17:22 Temperature 36.9 C 37.0 C Heart Rate [ 90 92 113 H Brachial] Respiratory 18 16 18 Rate Blood Pressure [Left Brachial artery] Blood Pressure 134/63 H 148/89 H 137/69 H [Right Brachial artery] O2 Saturation 95 96 98 06/12/17 00:06 Temperature 36.5 C Heart Rate [ 77 Brachial] Respiratory 16 Rate Blood Pressure 141/76 H [Left Brachial artery] Blood Pressure [Right Brachial artery] O2 Saturation 97 Oxygen O2 Source Room air I&O (Last 24 Hrs): Intake and Output Totals x24h 06/10/17 06/11/17 06/12/17 23:59 23:59 23:59 Intake Total 5145 4083 331 Balance 5145 4083 331 General: Alert, Oriented x3, Cooperative HEENT: Atraumatic, Mucous membr. moist/pink Neck: Supple Neuro: Alert Cardiovascular: Regular rate, Normal S1, Normal S2, No murmurs Respiratory: No respiratory distress, Breath sounds nml Abdomen: Normal bowel sounds, Soft, Other (incision covered with dressing intact.) Extremities: No clubbing Skin: No rashes - Results Results: Laboratory Results WBC 4.9 x10^3/uL (4.8-10.8) 06/12/17 05:10 RBC 3.83 10^6/uL (4.20-5.40) L 06/12/17 05:10 Hgb 11.7 g/dL (12.0-16.0) L 06/12/17 05:10 Hct 33.7 % (37.0-47.0) L 06/12/17 05:10 MCV 88.0 fL (81.0-99.0) 06/12/17 05:10 MCH 30.5 pg (27.0-31.0) 06/12/17 05:10 MCHC 34.7 g/dL (32.0-36.0) 06/12/17 05:10 RDW 14.3 % (12.0-15.0) 06/12/17 05:10 Plt Count 194 10^3/uL (130-450) 06/12/17 05:10 MPV 6.7 fL (7.9-10.8) L 06/12/17 05:10 Neut # 2.7 10^3/uL (1.5-6.6) 06/12/17 05:10 Lymph # 1.2 10^3/uL (1.5-3.5) L 06/12/17 05:10 Woods # 0.6 10^3/uL (0.0-1.0) 06/12/17 05:10 Eos # 0.4 10^3/uL (0.0-0.7) 06/12/17 05:10 Baso # 0.0 10^3/uL (0.0-0.1) 06/12/17 05:10 Absolute Nucleated RBC 0.00 x10^3/uL 06/12/17 05:10 Nucleated RBCs 0.0 /100WBC 06/12/17 05:10 PT 11.3 secs (9.9-12.6) 06/05/17 06:25 INR 1.0 (0.8-1.2) 06/05/17 06:25 Sodium 144 mmol/L (135-145) 06/12/17 05:10 Potassium 2.8 mmol/L (3.5-5.0) L 06/12/17 05:10 Chloride 108 mmol/L (101-111) 06/12/17 05:10 Carbon Dioxide 28 mmol/L (21-32) 06/12/17 05:10 Anion Gap 8.0 (6-13) 06/12/17 05:10 BUN 5 mg/dL (6-20) L 06/12/17 05:10 Creatinine 0.7 mg/dL (0.4-1.0) 06/12/17 05:10 Estimated GFR (MDRD) 87 (>89) L 06/12/17 05:10 Glucose 135 mg/dL (70-100) H 06/12/17 05:10 POC Whole Bld Glucose 171 mg/dL (70 - 100) H 06/11/17 20:46 Glycated Hemoglobin 5.8 % (4.6-6.2) 06/05/17 06:25 Estim Average Glucose 120 (70-100) H 06/05/17 06:25 Lactic Acid 1.1 mmol/L (0.5-2.2) 06/05/17 06:25 Calcium 8.2 mg/dL (8.5-10.3) L 06/12/17 05:10 Ionized Calcium 5.2 mg/dL (4.8-5.6) 06/05/17 06:25 Magnesium 1.4 mg/dL (1.7-2.8) L 06/11/17 11:00 Total Bilirubin 0.6 mg/dL (0.2-1.0) 06/12/17 05:10 AST 23 IU/L (10-42) 06/12/17 05:10 ALT 21 IU/L (10-60) 06/12/17 05:10 Alkaline Phosphatase 31 IU/L (42-121) L 06/12/17 05:10 Total Protein 5.0 g/dL (6.7-8.2) L 06/12/17 05:10 Albumin 2.4 g/dL (3.2-5.5) L 06/12/17 05:10 Globulin 2.6 g/dL (2.1-4.2) 06/12/17 05:10 Albumin/Globulin Ratio 0.9 (1.0-2.2) L 06/12/17 05:10 Lipase 39 U/L (22-51) 06/04/17 16:10 TSH 4.07 uIU/mL (0.34-5.60) 06/05/17 06:25 PTH Intact 27 pg/mL (12-88) 06/05/17 06:25 Urine Color YELLOW 06/04/17 18:18 Urine Clarity CLEAR (CLEAR) 06/04/17 18:18 Urine pH 7.0 PH (5.0-7.5) 06/04/17 18:18 Ur Specific [place] 1.015 (1.002-1.030) 06/04/17 18:18 Urine Protein NEGATIVE mg/dL (NEGATIVE) 06/04/17 18:18 Urine Glucose (UA) NEGATIVE mg/dL (NEGATIVE) 06/04/17 18:18 Urine Ketones 40 mg/dL (NEGATIVE) H 06/04/17 18:18 Urine Occult Blood NEGATIVE (NEGATIVE) 06/04/17 18:18 Urine Nitrite NEGATIVE (NEGATIVE) 06/04/17 18:18 Urine Bilirubin NEGATIVE (NEGATIVE) 06/04/17 18:18 Urine Urobilinogen 0.2 (NORMAL) E.U./dL (NORMAL) 06/04/17 18:18 Ur Leukocyte Esterase TRACE (NEGATIVE) H 06/04/17 18:18 Urine RBC None Seen /HPF (0-5) 06/04/17 18:18 Urine WBC 0-3 /HPF (0-5) 06/04/17 18:18 Ur Squamous Epith Cells NONE SEEN (<= Few) 06/04/17 18:18 Urine Bacteria None Seen /HPF (None Seen) 06/04/17 18:18 Ur Microscopic Review INDICATED 06/04/17 18:18 Urine Culture Comments INDICATED 06/04/17 18:18
--- NOTE | 2017-06-12 07:51 | OPERATIVE REPORT ---
DATE OF SURGERY: 06/07/2017 00:00:00 PREOPERATIVE DIAGNOSIS: Small-bowel obstruction secondary to adhesions. POSTOPERATIVE DIAGNOSES 1. Small-bowel obstruction secondary to adhesions. 2. Incarcerated ventral incisional hernia. PROCEDURES 1. Exploratory laparotomy. 2. Lysis of adhesions. 3. Partial small bowel resection x2. 4. Repair of incarcerated ventral incisional hernia. OPERATING SURGEON: Walter Melgoza MD ANESTHESIA: General. INDICATIONS FOR PROCEDURE: The patient is a 56-year-old female who presents with abdominal pain for about a day prior to admission. She comes to the emergency room, where a CT scan is suggestive of a partial small-bowel obstruction. She was then admitted to the hospital and placed n.p.o. She continued to have pain and underwent a small-bowel followthrough. This showed non-filling of the colon. Because of this, she was then taken to surgery in order to correct this problem. FINDINGS AT PROCEDURE: Patient had a small-bowel obstruction secondary to adhesions. There was a small band adhesion down in the lower pelvic area. This caused pressure on 2 areas of the small bowel. Once this band adhesion, along with the other adhesions being lysed, was completed, the small bowel was then evaluated. There were 2 areas of small bowel mid portion that were , where there was chronic scarring along with pressure necrosis starting to begin. Because of this area, the small bowel needed to be resected with [id number] functional end-to-end anastomosis being completed. Patient had an incarcerated ventral incisional hernia in the upper portion of the incision, with it containing omentum. PROCEDURE: After informed consent was obtained, patient was taken to the operating room and placed in a supine position. General endotracheal anesthesia was then administered. The patient's abdomen was then prepped and draped in the usual sterile fashion. A midline abdominal incision was made in the skin using a scalpel. This was carried down to and through the fascial layer using electrocautery. There was intraabdominal serous fluid present, which was suctioned out. Patient had omental adhesions to the abdominal wall, which were taken down using cautery. There were also omental adhesions to the small bowel, which were lysed using Metzenbaum scissors. Next the adhesions throughout the abdomen from her previous surgery were then lysed using sharp dissection. Going down into the pelvis, there were several band adhesions across the small intestine causing kinking. These bands were then divided, freeing up the small intestine. Once the entire small bowel had been freed up, the small intestine was then looked at in its entirety. It was then run from the ligament of Treitz to the ileocecal valve. The proximal small bowel was dilated due to the obstruction. Where the obstruction was located was the mid jejunal to distal portion. There were 2 areas of constrictions due to adhesions, where pressure necrosis had been starting. These areas needed to be resected. These areas were far apart from each other. Next the small bowel proximal and distal to the areas of stricturing were then brought together side by side. Stay sutures of 3-0 Vicryl suture were then placed proximally and distally where the anastomosis would be created. An opening was then made in the mesentery of the small bowel, where the proximal anastomosis would be completed. An opening was then made in the lumen of the small bowel at its new anastomosis using electrocautery. A BLANCA-75 stapling device was then inserted with one end in each opening going into the bowel. It was then engaged, stapling and creating a new anastomosis. A second BLANCA-75 stapling device was then placed across the open end, stapling and closing it. There appeared to be an adequate lumen between the 2 bowel. The mesenteric defect was then closed using a #3-0 Vicryl suture. This was likewise done for the other small bowel to be resected. The small bowel was then returned to the abdominal cavity. The wound was then copiously irrigated. The patient was then found to have an incarcerated ventral incisional hernia with omentum. The omentum was then removed from the hernia sac. The hernia sac was then removed from the subcutaneous tissue. The fascial defect was then delineated, removing all the scar tissue. The subcutaneous fat was then dissected for several centimeters back. The midline abdominal fascial layer was then closed using running #1 PDS suture. Subcutaneous tissue was apposed using a 3-0 Vicryl suture after irrigating the area. The skin was stapled closed. The patient was then awakened, extubated, and taken from the operating room in stable condition. ESTIMATED BLOOD LOSS: 50 mL. COMPLICATIONS: None. CONDITION OF PATIENT AT END OF PROCEDURE: Stable. SPECIMENS: Partial small bowel resection. DRAINS AND PACKS: None. CLASSIFICATION OF WOUND: JOB #: [id number] EXT JOB #:[id number] [email or web address]
[2017-06-12] MEDS: INSULIN ASPART 300 UNIT/3 ML PEN SUBQ SCH ×4 (08:03→21:11)
[2017-06-12] MEDS: HYDROmorphone 1 MG/ML SYRINGE IVP PRN ×2 (08:55→13:02)
[2017-06-12] MEDS: LOSARTAN 50 MG TABLET PO SCH (10:13)
[2017-06-12] MEDS: hydroCHLOROthiazide 25 MG TABLET PO SCH (10:13)
[2017-06-12] MEDS: ATORVASTATIN 10 MG TABLET PO SCH (10:13)
[2017-06-12] MEDS: ENOXAPARIN 40 MG/0.4 ML SYRINGE SUBQ SCH (10:14)
[2017-06-12] MEDS: FAMOTIDINE 20 MG/50 ML 50 ML IV SCH (10:14)
[2017-06-12] MEDS ORDERED: POTASSIUM CHLOR 10 MEQ/100 ML 100 ML IV SCH (11:00)
[2017-06-12] MEDS: LORazepam 2 MG/ML SYRINGE IVP PRN ×2 (11:50→19:00)
[2017-06-12] MEDS ORDERED: QUEtiapine 100 MG TABLET PO SCH (12:30)
[2017-06-12] MEDS ORDERED: lamoTRIgine 100 MG TABLET PO SCH (12:30)
[2017-06-12] MEDS: POTASSIUM CHLOR 10 MEQ/100 ML 100 ML IV SCH ×2 (13:53→15:07)
[2017-06-12] MEDS ORDERED: HYDROcod/ACETAM 5/325 MG TABLET PO PRN ×2 (14:54)
[2017-06-12] MEDS: lamoTRIgine 100 MG TABLET PO SCH (16:07)
[2017-06-12] MEDS: QUEtiapine 100 MG TABLET PO SCH (16:07)
[2017-06-12 16:08] LABS: CALCIUM 8.4 mg/dL (8.5-10.3)
[2017-06-13] MEDS: SODIUM CHLORIDE FLUSH 0.9% 10 ML SYRINGE IVP SCH (06:11)
[2017-06-13 06:29] LABS: BASOPHILS % (AUTO) 0.4 %; EOSINOPHILS # (AUTO) 0.3 10^3/uL (0.0-0.7); HCT - HEMATOCRIT 37.7 % (37.0-47.0); HGB - HEMOGLOBIN 12.8 g/dL (12.0-16.0); LYMPHOCYTES # (AUTO) 1.3 10^3/uL (1.5-3.5); LYMPHOCYTES % (AUTO) 22.8 %; MEAN CORPUSCULAR HEMOGLOBIN 30.1 pg (27.0-31.0); MEAN CORPUSCULAR HGB CONC 33.8 g/dL (32.0-36.0); MONOCYTES # (AUTO) 0.6 10^3/uL (0.0-1.0); MONOCYTES % (AUTO) 11.4 %; NEUTROPHILS # (AUTO) 3.4 10^3/uL (1.5-6.6); NEUTROPHILS % (AUTO) 60.4 %; RED BLOOD COUNT 4.24 10^6/uL (4.20-5.40); RED CELL DISTRIBUTION WIDTH 14.4 % (12.0-15.0); UNCORRECTED WHITE BLOOD COUNT 5.6 x10^3/uL; WHITE BLOOD COUNT 5.6 x10^3/uL (4.8-10.8)
[2017-06-13 06:30] LABS: BILIRUBIN,TOTAL 0.5 mg/dL (0.2-1.0); CALCIUM 8.5 mg/dL (8.5-10.3); CREATININE 0.7 mg/dL (0.4-1.0); TOTAL PROTEIN 5.6 g/dL (6.7-8.2)
[2017-06-13] MEDS: INSULIN ASPART 300 UNIT/3 ML PEN SUBQ SCH ×2 (07:41→11:50)
[2017-06-13] MEDS ORDERED: POTASSIUM CHLORIDE 10 MEQ CAPSULE PO ONE (08:00)
[2017-06-13] MEDS ORDERED: POTASSIUM CHLORIDE 20 MEQ TABLET PO SCH (08:00)
[2017-06-13] MEDS: SODIUM CHLORIDE 0.9% 1,000 ML IV SCH (08:19)
[2017-06-13] MEDS: ATORVASTATIN 10 MG TABLET PO SCH (08:20)
[2017-06-13] MEDS: ENOXAPARIN 40 MG/0.4 ML SYRINGE SUBQ SCH (08:20)
[2017-06-13] MEDS: LOSARTAN 50 MG TABLET PO SCH (08:21)
[2017-06-13] MEDS: hydroCHLOROthiazide 25 MG TABLET PO SCH ×2 (08:22→10:40)
--- NOTE | 2017-06-13 10:17 | Discharge Plan ---
Discharge Plan Disposition: Home, Self Care Condition: Good Prescriptions: HYDROcod/ACETAM 5/325 [[place] 5/325] 1 tab PO Q4HR PRN #20 tablet PRN Reason: Minor Pain Potassium Chloride [K-Dur] 20 meq PO BIDWM #6 tablet Diet: Regular (cardiac and diabetic; small amount frequent meals; gradually go back to your routine diet) Activity Restrictions: Additional Comments (no driving for now per surgeon) Shower Restrictions: No Weight Bearing: Full Weight Additional Instructions or Follow Up instructions: See Dr. Melgoza next week for follow up; get staple removed then see your PCP in a week for follow up; check CBC, and BMP then your HCTZ was discontinued; monitor your blood pressure at home and show the result to your doctor for further BP medication adjustment also check your blood sugar as instructed before. keep incision site clean and dry. if you have fever, chills, more drainage/pain /swelling at surgical site, call surgeon or come to ED also if you have nausea, vomit, abdominal pain, stiff abdomen, can't keep things down, call surgeon or come to ED for some reasons, your insulin was not included in your home list; continue your insulin as ordered before if you are using insulin. No Smoking: If you smoke, Please STOP! Call for help. Follow-up with: Tanner Orlando MD [Primary Care Provider] -
--- NOTE | 2017-06-13 11:17 | DISCHARGE SUMMARY ---
"Discharge Summary Admit Date: 06/04/17 Discharge Date: 06/13/17 Discharging Provider: BRITTANIE Collier Primary Care Provider: Dr. Tanner Miles Code Status: Attempt Resuscitation Condition at Discharge: Good Discharge Disposition: Home, Self Care Discharge Facility Name: Home - DIAGNOSES Admission Diagnoses: small bowel obstruction schizoaffective disorder possible acute kidney failure irritable bowel syndrome hypertension diabetes obesity BMI 31.8 hypercalcemia Discharge Diagnoses with Status of Each Condition: small bowel obstruction-- sp small bowel resection; resolved Hypokalemia-- improving schizoaffective disorder-- continue home medicine; controlled possible acute kidney failure-- improving irritable bowel syndrome: stable hypertension-- continue Losartan hyperlipidimia -- stable; continue statin diabetes type 2; insulin dependent; controlled; obesity BMI 31.8 hypercalcemia: improving - HPI History of Present Illness: 56 year old lady presented to the Emergency Department with a chief complaint of abdominal pain. On presentation to the ER the patient was in severe abdominal pain requiring IV dilaudid. She was afebrile and her vital signs were stable. The patients lab worked revealed a mildly elevated creatinine and calcium but were otherwise within normal limits. She underwent a CT of her abdomen which revealed proximal and mid small bowel dilation with distal decompressed small bowel. Suspicious for a partial mid to distal small bowel obstruction. The emergency room physician spoke with the Surgeon international coordinator Dr. Melgoza who asked that the patient be admitted by the hospitalist team for medical management and he would consult on the patient; patient then was admitted. please see details on H and P done by Castillo Ramon - CONSULTS | PROCEDURES Consultations: general surgery Procedures: exploratory small bowel resection - HOSPITAL COURSE Hospital Course: patient was initially managed conservatively with NPO and iv fluid; she underwent exploratory small bowel resection by Dr. Melgoza on 06/05/17 followed by NG tube, IVF, IV antibiotics. she has improved gradually. after NG tube was discontinued, she has tolerated po intake from clear liquid to soft diet; she has had bowel movement. she has no fever, chills, shortness of breath, abdominal pain, nausea, vomit. patient's rest medical issues are relatively stable. Patient was seen today by surgery team; surgeon thinks patient can be discharged today. the discharge plan was discussed with surgeon as well as patient. questions and concerns were answered. she had hypokalemia; she recieved iv K rider; she will also received oral potassium for few more days. she is advised to have close follow up; please see details on discharge plan note. - ALLERGIES Allergies/Adverse Reactions: Allergies Allergy/AdvReac Type Severity Reaction Status Date / Time haloperidol [From Haldol] Allergy Severe Hallucinati Verified 06/09/17 14:21 ons haloperidol lactate * Allergy Severe Hallucinati Verified 06/09/17 14:21 [From Haldol] ons Sulfa (Sulfonamide AdvReac Nausea Verified 06/04/17 16:20 Antibiotics) haldol Allergy Hallucinati Uncoded 06/09/17 14:21 ons - MEDICATIONS Home Medications: Ambulatory Orders Medication Instructions Recorded Confirmed Metformin HCl [Metformin HCl ER] 750 mg PO BID 07/12/14 06/04/17 QUEtiapine [SEROquel] 100 mg PO DAILY 07/12/14 06/11/17 Simvastatin 40 mg PO DAILY 07/12/14 06/04/17 lamoTRIgine [LaMICtal] 100 mg PO DAILY 07/12/14 06/11/17 Liraglutide [Victoza 2-Milan] 825 mg SQ DAILY 06/11/17 06/11/17 QUEtiapine [SEROquel] 200 mg PO QPM 06/11/17 06/11/17 lamoTRIgine [LaMICtal] 200 mg PO DAILY 06/11/17 06/11/17 HYDROcod/ACETAM 5/325 [Partridge 5/325] 1 tab PO Q4HR PRN #20 tablet 06/13/17 Losartan [Cozaar] 25 mg PO DAILY tablet 06/13/17 Potassium Chloride [K-Dur] 20 meq PO BIDWM #6 tablet 06/13/17 - PHYSICAL EXAM AT DISCHARGE General Appearance: positive: No acute distress, Alert Eyes Bilateral: positive: Normal inspection, PERRL, EOMI Respiratory: positive: Chest non-tender, No respiratory distress, Breath sounds nml Cardiovascular: positive: Regular rate & rhythm, No murmur, No gallop Abdomen: positive: Non-tender, Nml bowel sounds, Other (mild tenderness @ surgical site; jennyfer intact; no drainage) Skin: positive: Color nml, No rash, Warm, Dry Extremities: positive: Non-tender, Full ROM Neurologic/Psychiatric: positive: Oriented x3 - LABS Result Diagrams: 06/13/17 05:49 06/13/17 05:49 - DIAGNOSTIC IMAGING Diagnostic Imaging Results: Final report reviewed Diagnostic Imaging Results Comments: CXR 06/08/17-- no acute cardiopulmonary process small bowel follow through 06/07/17-- complete mechanical small bowel obstruction CT of abdomen 06/04/17-- proximal and mid small bowel dilation with distal decompressed small bowel; suspicious for a partial mid to distal SBO; moderate colonic diverticulosis without diverticulitis - FOLLOW UP Follow Up: PCP general surgery - TIME SPENT Time Spent in Discharge (Minutes): 36"
[2017-06-13 12:09] VITALS: BP 142/75
--- NOTE | 2017-06-13 14:37 | PROVIDER PROGRESS NOTE ---
Subjective - General Admit Date: 06/04/17 Procedure Date: 06/07/17 Post Op Days: 6 Procedure Performed: ex lap, SBR, ROSARIO - Review of Systems Wound/Incisions: positive: Healing well, No drainage, Other (minimal bruising) Drain Type: NGT Drain Output Description: bilious Approximate mls Output: 800 cc/12 hrs General: positive: Other (somewhat disoriented from pain medications) Pulmonary: positive: No symptoms Cardiovascular: positive: No symptoms Gastrointestinal: positive: Flatus, Other (bowel movement). negative: Nausea Psychiatric: positive: Mood lability Objective - Patient Data Vital Signs: Vital Signs x48h Temp Pulse Resp BP Pulse Ox 06/13/17 12:08 37 C 77 18 142/75 H 100 06/13/17 08:10 37.3 C 73 16 147/77 H 98 Intake & Output: Intake and Output Totals x24h 06/11/17 06/12/17 06/13/17 23:59 23:59 23:59 Intake Total 4083 2208 571 Balance 4083 2208 571 - Lab Results Lab Results: 06/13/17 05:49 06/13/17 05:49 Other Lab Results: Lab Results x24hrs 06/13/17 06/13/17 06/13/17 Range/Units 11:21 07:21 05:49 WBC (4.8-10.8) x10^3/uL RBC (4.20-5.40) 10^6/uL Hgb (12.0-16.0) g/dL Hct (37.0-47.0) % MCV (81.0-99.0) fL MCH (27.0-31.0) pg MCHC (32.0-36.0) g/dL RDW (12.0-15.0) % Plt Count (130-450) 10^3/uL MPV (7.9-10.8) fL Neut # (1.5-6.6) 10^3/uL Lymph # (1.5-3.5) 10^3/uL [place] # (0.0-1.0) 10^3/uL Eos # (0.0-0.7) 10^3/uL Baso # (0.0-0.1) 10^3/uL Absolute Nucleated RBC x10^3/uL Nucleated RBCs /100WBC Sodium 145 (135-145) mmol/L Potassium 3.0 L (3.5-5.0) mmol/L Chloride 106 (101-111) mmol/L Carbon Dioxide 30 (21-32) mmol/L Anion Gap 9.0 (6-13) BUN 5 L (6-20) mg/dL Creatinine 0.7 (0.4-1.0) mg/dL Estimated GFR (MDRD) 87 L (>89) Glucose 157 H (70-100) mg/dL POC Whole Bld Glucose 183 H 146 H (70 - 100) mg/dL Calcium 8.5 (8.5-10.3) mg/dL Total Bilirubin 0.5 (0.2-1.0) mg/dL AST 23 (10-42) IU/L ALT 23 (10-60) IU/L Alkaline Phosphatase 38 L (42-121) IU/L Total Protein 5.6 L (6.7-8.2) g/dL Albumin 2.8 L (3.2-5.5) g/dL Globulin 2.8 (2.1-4.2) g/dL Albumin/Globulin Ratio 1.0 (1.0-2.2) 06/13/17 06/12/17 06/12/17 Range/Units 05:49 20:18 16:47 WBC 5.6 (4.8-10.8) x10^3/uL RBC 4.24 (4.20-5.40) 10^6/uL Hgb 12.8 (12.0-16.0) g/dL Hct 37.7 (37.0-47.0) % MCV 89.0 (81.0-99.0) fL MCH 30.1 (27.0-31.0) pg MCHC 33.8 (32.0-36.0) g/dL RDW 14.4 (12.0-15.0) % Plt Count 223 (130-450) 10^3/uL MPV 7.0 L (7.9-10.8) fL Neut # 3.4 (1.5-6.6) 10^3/uL Lymph # 1.3 L (1.5-3.5) 10^3/uL [place] # 0.6 (0.0-1.0) 10^3/uL Eos # 0.3 (0.0-0.7) 10^3/uL Baso # 0.0 (0.0-0.1) 10^3/uL Absolute Nucleated RBC 0.00 x10^3/uL Nucleated RBCs 0.0 /100WBC Sodium (135-145) mmol/L Potassium (3.5-5.0) mmol/L Chloride (101-111) mmol/L Carbon Dioxide (21-32) mmol/L Anion Gap (6-13) BUN (6-20) mg/dL Creatinine (0.4-1.0) mg/dL Estimated GFR (MDRD) (>89) Glucose (70-100) mg/dL POC Whole Bld Glucose 143 H 180 H (70 - 100) mg/dL Calcium (8.5-10.3) mg/dL Total Bilirubin (0.2-1.0) mg/dL AST (10-42) IU/L ALT (10-60) IU/L Alkaline Phosphatase (42-121) IU/L Total Protein (6.7-8.2) g/dL Albumin (3.2-5.5) g/dL Globulin (2.1-4.2) g/dL Albumin/Globulin Ratio (1.0-2.2) 06/12/17 Range/Units 15:52 WBC (4.8-10.8) x10^3/uL RBC (4.20-5.40) 10^6/uL Hgb (12.0-16.0) g/dL Hct (37.0-47.0) % MCV (81.0-99.0) fL MCH (27.0-31.0) pg MCHC (32.0-36.0) g/dL RDW (12.0-15.0) % Plt Count (130-450) 10^3/uL MPV (7.9-10.8) fL Neut # (1.5-6.6) 10^3/uL Lymph # (1.5-3.5) 10^3/uL [place] # (0.0-1.0) 10^3/uL Eos # (0.0-0.7) 10^3/uL Baso # (0.0-0.1) 10^3/uL Absolute Nucleated RBC x10^3/uL Nucleated RBCs /100WBC Sodium 141 (135-145) mmol/L Potassium 3.0 L (3.5-5.0) mmol/L Chloride 105 (101-111) mmol/L Carbon Dioxide 28 (21-32) mmol/L Anion Gap 8.0 (6-13) BUN 7 (6-20) mg/dL Creatinine 1.0 (0.4-1.0) mg/dL Estimated GFR (MDRD) 57 L (>89) Glucose 203 H (70-100) mg/dL POC Whole Bld Glucose (70 - 100) mg/dL Calcium 8.4 L (8.5-10.3) mg/dL Total Bilirubin (0.2-1.0) mg/dL AST (10-42) IU/L ALT (10-60) IU/L Alkaline Phosphatase (42-121) IU/L Total Protein (6.7-8.2) g/dL Albumin (3.2-5.5) g/dL Globulin (2.1-4.2) g/dL Albumin/Globulin Ratio (1.0-2.2) - Physical Exam Wound/Incisions: positive: Healing well Abdomen: positive: Other (no significant tenderness) Impression/Plan - Problem List Problem List: s/p laparotomy with partial small bowel resection x2, los pod#6. Bowel function has return. No evidence of infection. May shower. d/c home with f/u dr Melgoza in 1 week.
== END 2017-06-13 12:45 | disposition home or self-care (01) | DRG 329 ==
LOC: ED 14:05 → MS2 21:40
PROVIDERS: ADMIT Internal Medicine; ATTEND Nurse Practitioner
PROC: 0DB80ZZ Excision of Small Intestine, Open Approach (ICD-10-PCS; 2017-06-07)
PROC: 0DBA0ZZ Excision of Jejunum, Open Approach (ICD-10-PCS; principal; 2017-06-07 11:15)
DX: K56.60 Unspecified intestinal obstruction (principal); E11.9 Type 2 diabetes mellitus without complications; K56.5 Intestinal adhesions [bands] with obstruction (postinfection); F31.9 Bipolar disorder, unspecified; I10 Essential (primary) hypertension; E66.3 Overweight; Z78.0 Asymptomatic menopausal state; K55.021 Focal (segmental) acute infarction of small intestine; N17.9 Acute kidney failure, unspecified; E83.52 Hypercalcemia; E83.42 Hypomagnesemia; E87.6 Hypokalemia; E86.0 Dehydration; I12.9 Hypertensive chronic kidney disease with stage 1 through stage 4 chronic kidney disease, or unspecified chronic kidney disease; E11.22 Type 2 diabetes mellitus with diabetic chronic kidney disease; N18.9 Chronic kidney disease, unspecified; F25.0 Schizoaffective disorder, bipolar type; E78.5 Hyperlipidemia, unspecified; K58.9 Irritable bowel syndrome, unspecified; E66.9 Obesity, unspecified; E11.3599 Type 2 diabetes mellitus with proliferative diabetic retinopathy without macular edema, unspecified eye; Z68.31 Body mass index [BMI] 31.0-31.9, adult; Z87.898 Personal history of other specified conditions; Z98.890 Other specified postprocedural states; Z87.891 Personal history of nicotine dependence; Z79.82 Long term (current) use of aspirin; Z79.84 Long term (current) use of oral hypoglycemic drugs; Z91.81 History of falling
CPT/HCPCS: 36415; 71010; 74022; 74177; 74250; 80048; 80053; 81001; 81003; 83036; 83605; 83690; 83735; 83970; 84443; 85025; 85610; 87086; 88307; 96361; 96365; 96375; 99284; 99285

== ENCOUNTER 2017-07-01 11:01 | Outpatient (CLI) | payer MEDICARE ==
[2017-07-01 12:04] LABS: BILIRUBIN,URINE NEGATIVE (NEGATIVE)
[2017-07-01 12:06] LABS: UA w/ MICROSCOPIC CHARGE YES
[2017-07-01 12:20] LABS: WBC,URINE >25 /HPF (0-5)
[2017-07-01 12:21] LABS: UR CULTURE IF IND INDICATED
== END 2017-07-01 11:02 | disposition home or self-care (01) ==
LOC: LAB 11:01
PROVIDERS: ATTEND Surgery
DX: R30.0 Dysuria (principal)
CPT/HCPCS: 81001; 81003; 87086

== ENCOUNTER 2019-05-26 10:30 | Outpatient (CLI) | payer MEDICARE ==
[2019-05-26 10:56] LABS: ALT ALANINE AMINOTRANSFERASE 29 IU/L (10-60); AST ASPARTATE AMINOTRANSFERASE 34 IU/L (10-42)
== END 2019-05-26 10:31 | disposition home or self-care (01) ==
LOC: LAB 10:30
PROVIDERS: ATTEND Psychiatry & Neurology Psychiatry
DX: F10.20 Alcohol dependence, uncomplicated (principal)
CPT/HCPCS: 36415; 84450; 84460

== ENCOUNTER 2020-09-15 09:04 | Outpatient (CLI) | payer MEDICARE ==
[2020-09-15 10:33] LABS: HEMOGLOBIN A1c% 7.1 % (4.27-6.07)
[2020-09-15 10:35] LABS: CREATININE 1.1 mg/dL (0.4-1.0)
== END 2020-09-15 09:05 | disposition home or self-care (01) ==
LOC: LAB 09:04
PROVIDERS: ATTEND Family Medicine
DX: E11.22 Type 2 diabetes mellitus with diabetic chronic kidney disease (principal); N18.30 Chronic kidney disease, stage 3 unspecified; Z79.4 Long term (current) use of insulin
CPT/HCPCS: 36415; 82043; 82565; 83036; 84132

== ENCOUNTER 2020-11-30 19:57 | Outpatient (CLI) | payer MEDICARE | END 2020-11-30 19:58 | disposition home or self-care (01) | LOC: COV 19:57 | PROVIDERS: ATTEND Family Medicine | DX: R53.83 Other fatigue (principal); R09.81 Nasal congestion; Z20.822 Contact with and (suspected) exposure to COVID-19 ==

== ENCOUNTER 2022-02-26 10:46 | Outpatient (CLI) | payer MEDICARE ==
[2022-02-26 11:07] LABS: POTASSIUM 4.6 mmol/L (3.5-5.0)
[2022-02-26 13:22] LABS: ESTIMATED AVERAGE GLUCOSE 174 mg/dL (70-100); HEMOGLOBIN A1c% 7.7 % (4.27-6.07)
== END 2022-02-26 10:47 | disposition home or self-care (01) ==
LOC: LAB 10:46
PROVIDERS: ATTEND Internal Medicine
DX: E11.22 Type 2 diabetes mellitus with diabetic chronic kidney disease (principal); N18.30 Chronic kidney disease, stage 3 unspecified; Z79.4 Long term (current) use of insulin; Z51.81 Encounter for therapeutic drug level monitoring
CPT/HCPCS: 36415; 82043; 82565; 82570; 83036; 84132

== ENCOUNTER 2022-03-02 09:15 | Outpatient (CLI) | payer MEDICARE ==
[2022-03-02 09:53] LABS: CREATININE,URINE 93.5 mg/dL; MICROALBUM/CREATININE RATIO,UR 32.1 ug/mg (<30.0)
== END 2022-03-02 09:16 | disposition home or self-care (01) ==
LOC: LAB 09:15
PROVIDERS: ATTEND Internal Medicine
DX: E11.22 Type 2 diabetes mellitus with diabetic chronic kidney disease (principal); N18.30 Chronic kidney disease, stage 3 unspecified; Z79.4 Long term (current) use of insulin
CPT/HCPCS: 82043; 82570

== ENCOUNTER 2022-11-08 08:12 | Outpatient (CLI) | payer MEDICARE ==
--- NOTE | 2022-11-08 12:46 | Mammography Report ---
BILATERAL DIGITAL SCREENING MAMMOGRAM 3D/2D: 11/08/2022 CLINICAL: Routine screening. Comparison is made to exams dated: 07/08/2019 mammogram - [facility] and 06/18/2019 mammogram - [facility]. Both breasts are almost entirely fatty (category a/<25% glandular tissue). There are benign vascular calcifications in both breasts. No significant masses, calcifications, or other findings are seen in either breast. There has been no significant interval change. IMPRESSION: BENIGN There is no mammographic evidence of malignancy. A 1 year screening mammogram is recommended. Based on the Tyrer Cuzick model (a risk assessment model) the patients lifetime risk is 5.4% and her 10 year risk is 2.3%. According to the ACR, ACS, and NCCN guidelines, an annual breast MRI exam kita g with mammogram is recommended if the patients lifetime risk is 20% or greater. This exam was interpreted at Station ID: [id number]. NOTE: For mammograms, a report in lay terms will be sent to the patient. Approximately 15% of breast malignancies will not be visualized mammographically. In the management of a palpable breast mass, a negative mammogram must not discourage biopsy of a clinically suspicious lesion. Electronically Signed By: Neelima lawrence/geovanni:11/08/2022 09:57:29 ACR BI-RADS Category 2: Benign Finding(s) 3342F PARENCHYMAL PATTERN: (F) - The breast(s) demonstrate(s) diffuse fatty replacement. BI-RADS CATEGORY: (2) - 2 RECOMMENDATION: (ANNUAL) - Recommend routine annual screening mammography. [id number] 1 year screening LATERALITY: (B)
== END 2022-11-08 08:13 | disposition home or self-care (01) ==
LOC: DI 08:12
DX: Z12.31 Encounter for screening mammogram for malignant neoplasm of breast (principal)